=== PATIENT | female | born 1940 | race Caucasian/White ===

== ENCOUNTER → 2016-04-15 | Outpatient (CLI) | payer MEDICARE ==
[2016-04-15 10:14] LABS: Calcium 9.2 mg/dL (8.4-10.2); Potassium 5.4 mmol/L (3.5-5.1)
== END | disposition home or self-care (01) ==
LOC: LABT 09:12
PROVIDERS: ATTEND Nurse Practitioner Family
DX: N18.3 Chronic kidney disease, stage 3 (moderate) (principal)
CPT/HCPCS: 80048

== ENCOUNTER → 2016-07-01 | Outpatient (CLI) | payer MEDICARE ==
[2016-07-01 10:09] LABS: Anisocytosis Moderate; CH 29.8; CHCM 29.8; HCT 32.7 % (34.0-46.0); HDW 3.66; HGB 9.6 gm/dL (11.4-16.0); Hypochromasia Marked; MCH 29.3 pg (25.0-35.0); MCHC 29.3 g/dL (31.0-37.0); MCV 99.9 fL (80.0-100.0); Macrocytosis Moderate; Mean Platelet Volume 7.9; Poikilocytosis Slight; RBC 3.27 m/uL (3.80-5.40); RDW 21.4 % (11.5-15.5); WBC 4.8 k/uL (3.8-10.6)
[2016-07-01 10:13] LABS: Appearance,Urine Clear (Clear); Bacteria,Urine Rare /hpf; Bilirubin,Urine Negative (Negative); Glucose,Urine (UA) Negative (Negative); Ketones,Urine Negative (Negative); Leukocyte Esterase,Urine Moderate (Negative); Mucus,Urine Rare /hpf; Nitrite,Urine Negative (Negative); Particle Count 1422; Protein,Urine Negative (Negative); RBC,Urine 1 /hpf (0-5); Squamous Epithelial Cell,Urine <1 /hpf (0-4); UA Billing (MACRO vs. MICRO) MICRO; Urobilinogen,Urine <2.0 mg/dL (<2.0); WBC,Urine 2 /hpf (0-5)
[2016-07-01 10:35] LABS: Calcium 10.2 mg/dL (8.4-10.2); Magnesium 1.7 mg/dL (1.6-2.3); Phosphorous 3.4 mg/dL (2.5-4.5); Uric Acid 6.7 mg/dL (3.7-7.4)
[2016-07-01 10:45] LABS: % Iron Saturation 38.2 % (20-50)
== END ==
LOC: LABWHC1 09:13
PROVIDERS: ATTEND Nurse Practitioner Family
DX: N18.3 Chronic kidney disease, stage 3 (moderate) (principal); D64.9 Anemia, unspecified; E79.0 Hyperuricemia without signs of inflammatory arthritis and tophaceous disease; R80.9 Proteinuria, unspecified; E21.3 Hyperparathyroidism, unspecified; N39.0 Urinary tract infection, site not specified
CPT/HCPCS: 36415; 80048; 81001; 82043; 82306; 82728; 83540; 83550; 83735; 83970; 84100; 84550; 85027

== ENCOUNTER → 2016-08-19 | Outpatient (CLI) | payer MEDICARE ==
[2016-08-19 10:01] LABS: Potassium 4.7 mmol/L (3.5-5.1); Total Bilirubin 0.7 mg/dL (0.2-1.3); Total Protein 7.3 g/dL (6.3-8.2)
== END | disposition home or self-care (01) ==
LOC: LABWHC1 08:54
PROVIDERS: ATTEND Internal Medicine Interventional Cardiology
DX: E78.2 Mixed hyperlipidemia (principal)
CPT/HCPCS: 36415; 80053; 80061

== ENCOUNTER → 2016-09-24 | Outpatient (CLI) | payer MEDICARE ==
--- NOTE | 2016-09-24 10:11 | MM ---
Reason for exam: follow-up at short interval from prior study. Last mammogram was performed 7 months ago. History: Patient is postmenopausal. Took estrogen for 10 years beginning at age 53. Took progesterone for 10 years beginning at age 53. Physical Findings: Nurse did not find any significant physical abnormalities on exam. MG 3D Diag Mammo W/Cad MICKIE Bilateral CC and MLO view(s) were taken. Prior study comparison: March 07, 2016, left breast MG 3d diag mammo w/cad LT. July 19, 2015, bilateral MG 3d screening mammo w/cad. There are scattered fibroglandular densities. Finding #1: Stable architectural distortion in the upper outer quadrant of the left breast. Finding #2: There are typically benign vascular, round, linear calcifications in both breasts. These results were verbally communicated with the patient and result sheet given to the patient on 09/24/16. ASSESSMENT: Benign, BI-RAD 2 RECOMMENDATION: Routine screening mammogram of both breasts in 1 year.
--- NOTE | 2016-09-24 10:13 | USB ---
Reason for exam: follow-up at short interval from prior study. History: Patient is postmenopausal. Took estrogen for 10 years beginning at age 53. Took progesterone for 10 years beginning at age 53. US Breast LT Left breast ultrasound includes all four quadrants, the retroareolar region and axilla. Finding demonstrates a 0.3 x 0.3 x 0.2cm oval l lesion too small to characterize at 12 o'clock, a 0.6 x 0.6 x 0.3cm oval, cystic lesion at 9 o'clock and ductal ectasia at the nipple. These results were verbally communicated with the patient and result sheet given to the patient on 09/24/16. ASSESSMENT: Benign, BI-RAD 2 RECOMMENDATION: Routine screening mammogram of both breasts in 1 year.
== END | disposition home or self-care (01) ==
LOC: RADMAMWWP 07:59
PROVIDERS: ATTEND Internal Medicine
DX: R92.8 Other abnormal and inconclusive findings on diagnostic imaging of breast (principal)
CPT/HCPCS: 76641; G0204; G0279

== ENCOUNTER → 2016-09-24 | Outpatient (CLI) | payer MEDICARE ==
[2016-09-24 10:39] LABS: Calcium 9.8 mg/dL (8.4-10.2); Potassium 4.5 mmol/L (3.5-5.1)
== END | disposition home or self-care (01) ==
LOC: LABWHC1 09:21
PROVIDERS: ATTEND Nurse Practitioner Family
DX: N18.3 Chronic kidney disease, stage 3 (moderate) (principal)
CPT/HCPCS: 36415; 80048

== ENCOUNTER → 2016-12-03 | Outpatient (CLI) | payer MEDICARE ==
[2016-12-03 10:36] LABS: Anisocytosis Moderate; CH 30.7; HCT 30.4 % (34.0-46.0); HGB 9.3 gm/dL (11.4-16.0); Hypochromasia Marked; MCH 30.3 pg (25.0-35.0); MCHC 30.5 g/dL (31.0-37.0); MCV 99.3 fL (80.0-100.0); Macrocytosis Moderate; Mean Platelet Volume 8.1; Poikilocytosis Slight; RBC 3.07 m/uL (3.80-5.40); RDW 22.3 % (11.5-15.5); WBC 5.1 k/uL (3.8-10.6)
[2016-12-03 10:48] LABS: Calcium 9.5 mg/dL (8.4-10.2); Magnesium 1.8 mg/dL (1.6-2.3); Phosphorous 3.5 mg/dL (2.5-4.5); Uric Acid 7.3 mg/dL (3.7-7.4)
[2016-12-03 12:07] LABS: Appearance,Urine Clear (Clear); Bilirubin,Urine Negative (Negative); Glucose,Urine (UA) Negative (Negative); Ketones,Urine Negative (Negative); Leukocyte Esterase,Urine Trace (Negative); Mucus,Urine Rare /hpf; Nitrite,Urine Negative (Negative); Particle Count 1045; Protein,Urine Negative (Negative); Specific Gravity,Urine 1.014 (1.001-1.035); Squamous Epithelial Cell,Urine 1 /hpf (0-4); UA Billing (MACRO vs. MICRO) MICRO; Urobilinogen,Urine <2.0 mg/dL (<2.0); WBC,Urine 2 /hpf (0-5)
[2016-12-03 14:00] LABS: Hemoglobin A1C 6.3 % (4.2-6.1)
[2016-12-03 15:33] LABS: Iron Saturation 20.64 (12.00-45.00)
[2016-12-03 17:58] LABS: Urine Creatinine 70.6 mg/dL
== END | disposition home or self-care (01) ==
LOC: LABWHC1 08:55
PROVIDERS: ATTEND Nurse Practitioner Family
DX: E11.22 Type 2 diabetes mellitus with diabetic chronic kidney disease (principal); N18.3 Chronic kidney disease, stage 3 (moderate); D64.9 Anemia, unspecified; E21.3 Hyperparathyroidism, unspecified; E55.9 Vitamin D deficiency, unspecified; R80.9 Proteinuria, unspecified; E79.0 Hyperuricemia without signs of inflammatory arthritis and tophaceous disease; N39.0 Urinary tract infection, site not specified
CPT/HCPCS: 36415; 80048; 81001; 82043; 82306; 82570; 82728; 83036; 83540; 83550; 83735; 83970; 84100; 84550; 85027

== ENCOUNTER → 2016-12-24 | Outpatient (CLI) | payer MEDICARE ==
--- NOTE | 2016-12-24 12:45 | US ---
EXAMINATION TYPE: US kidneys/renal and bladder DATE OF EXAM: 12/24/2016 COMPARISON: US 2016 CLINICAL HISTORY: N18.3 Chronic kideny disease stage 3. CKD stage 3, HTN, DM, obese patient EXAM MEASUREMENTS: Right Kidney: 7.8 x 4.3 x 4.6 cm Left Kidney: 9.7 x 4.9 x 5.1 cm Right Kidney: measuring slightly small, no hydro or masses seen Left Kidney: no hydro or masses seen Bladder: not fully distended Bilateral Jets seen: left jet not seen There is no evidence for hydronephrosis at this point in time. No nephrolithiasis is seen. No danny s are identified. IMPRESSION: 1. Renal parenchymal thinning.
== END ==
LOC: RADUSWWP 12:05
PROVIDERS: ATTEND Internal Medicine Nephrology
DX: N18.3 Chronic kidney disease, stage 3 (moderate) (principal)
CPT/HCPCS: 76770

== ENCOUNTER → 2016-12-30 | Outpatient (CLI) | payer MEDICARE ==
[2016-12-30 10:26] LABS: Appearance,Urine Clear (Clear); Bilirubin,Urine Negative (Negative); Glucose,Urine (UA) Negative (Negative); Ketones,Urine Negative (Negative); Leukocyte Esterase,Urine Trace (Negative); Mucus,Urine Rare /hpf; Nitrite,Urine Negative (Negative); Particle Count 677; Protein,Urine Negative (Negative); Specific Gravity,Urine 1.009 (1.001-1.035); UA Billing (MACRO vs. MICRO) MICRO; Urobilinogen,Urine <2.0 mg/dL (<2.0); WBC,Urine 2 /hpf (0-5)
[2016-12-30 10:29] LABS: Anisocytosis Moderate; CHCM 29.7; HCT 34.4 % (34.0-46.0); HDW 3.61; HGB 10.1 gm/dL (11.4-16.0); Hypochromasia Marked; MCH 29.6 pg (25.0-35.0); MCHC 29.3 g/dL (31.0-37.0); MCV 101.2 fL (80.0-100.0); Macrocytosis Moderate; Mean Platelet Volume 7.5; Poikilocytosis Slight; RDW 20.6 % (11.5-15.5); WBC 5.4 k/uL (3.8-10.6)
[2016-12-30 10:57] LABS: Calcium 9.7 mg/dL (8.4-10.2); Magnesium 1.7 mg/dL (1.6-2.3); Phosphorus 3.3 mg/dL (2.5-4.5); Potassium 4.7 mmol/L (3.5-5.1); Uric Acid 7.2 mg/dL (3.7-7.4)
[2016-12-30 12:01] LABS: Hemoglobin A1C 6.2 % (4.2-6.1)
[2016-12-30 16:12] LABS: Iron Saturation 43.7 (12.00-45.00)
[2016-12-30 16:32] LABS: Urine Creatinine 55.5 mg/dL
== END | disposition home or self-care (01) ==
LOC: LABWHC1 08:58
PROVIDERS: ATTEND Nurse Practitioner Family
DX: N39.0 Urinary tract infection, site not specified (principal); E11.9 Type 2 diabetes mellitus without complications; R80.9 Proteinuria, unspecified; D64.9 Anemia, unspecified; E79.0 Hyperuricemia without signs of inflammatory arthritis and tophaceous disease; E21.3 Hyperparathyroidism, unspecified; N18.3 Chronic kidney disease, stage 3 (moderate)
CPT/HCPCS: 36415; 80048; 81001; 82043; 82306; 82570; 82728; 83036; 83540; 83550; 83735; 83970; 84100; 84550; 85027

== ENCOUNTER → 2017-06-04 | Outpatient (CLI) | payer MEDICARE ==
[2017-06-04 10:44] LABS: Anisocytosis Moderate; HGB 9.3 gm/dL (11.4-16.0); Hypochromasia Moderate; MCH 30.4 pg (25.0-35.0); MCHC 31.1 g/dL (31.0-37.0); MCV 97.7 fL (80.0-100.0); Macrocytosis Slight; Mean Platelet Volume 7.6; Platelet Count 323 k/uL (150-450); Poikilocytosis Slight; RBC 3.07 m/uL (3.80-5.40); WBC 5.9 k/uL (3.8-10.6)
[2017-06-04 10:45] LABS: Amorphous Sediment,Urine Rare /hpf; Appearance,Urine Clear (Clear); Bacteria,Urine Rare /hpf; Bilirubin,Urine Negative (Negative); Blood,Urine Negative (Negative); Color,Urine Light Yellow; Glucose,Urine (UA) Negative (Negative); Hyaline Casts,Urine 3 /lpf (0-2); Ketones,Urine Negative (Negative); Leukocyte Esterase,Urine Moderate (Negative); Mucus,Urine Rare /hpf; Nitrite,Urine Negative (Negative); Protein,Urine Negative (Negative); Specific Gravity,Urine 1.015 (1.001-1.035); Squamous Epithelial Cell,Urine <1 /hpf (0-4); Urobilinogen,Urine <2.0 mg/dL (<2.0); WBC,Urine 2 /hpf (0-5)
[2017-06-04 10:50] LABS: Calcium 9.6 mg/dL (8.4-10.2); Magnesium 1.7 mg/dL (1.6-2.3); Phosphorus 3.5 mg/dL (2.5-4.5); Potassium 4.8 mmol/L (3.5-5.1); Uric Acid 7.1 mg/dL (3.7-7.4)
[2017-06-04 16:30] LABS: Iron Saturation 17.97 (12.00-45.00)
[2017-06-04 16:38] LABS: Vitamin D 25 Hydroxy 29.7 ng/mL (30.0-100.0)
[2017-06-04 21:06] LABS: Hemoglobin A1C 6.2 % (4.0-6.0)
== END | disposition home or self-care (01) ==
LOC: LABWHC1 09:20
PROVIDERS: ATTEND Nurse Practitioner Family
DX: R80.9 Proteinuria, unspecified (principal); N18.3 Chronic kidney disease, stage 3 (moderate); E11.22 Type 2 diabetes mellitus with diabetic chronic kidney disease; D63.1 Anemia in chronic kidney disease; E79.0 Hyperuricemia without signs of inflammatory arthritis and tophaceous disease; E21.3 Hyperparathyroidism, unspecified; N39.0 Urinary tract infection, site not specified
CPT/HCPCS: 36415; 80048; 81001; 82043; 82306; 82570; 82728; 83036; 83540; 83550; 83735; 83970; 84100; 84550; 85027; 87086

== ENCOUNTER → 2017-08-01 | Outpatient (CLI) | payer MEDICARE ==
--- NOTE | 2017-08-01 11:50 | MR ---
EXAMINATION TYPE: MR shoulder LT wo con DATE OF EXAM: 08/01/2017 COMPARISON: NONE HISTORY: Left shoulder pain TECHNIQUE: Multiplanar, multisequence imaging of the left shoulder is performed without contrast. FINDINGS: Rotator Cuff: There is diffuse enlargement and abnormal signal involving the distal margin supraspina tus tendon. Also are involved with conjoined tendon noted. Low distal margin of the infraspinatus ten don including the insertion and conjoined portion of the tendon also involved. There is atrophy of th e supraspinatus muscle and to a lesser extent the infraspinatus muscle. Acromioclavicular Joint: Atrophic changes the AC joint does result in a degree of impingement and the re is a small amount of fluid in subacromial subdeltoid bursa. Glenohumeral Joint: No humeral joint is maintained. Labrum: The labrum appears grossly intact given limitation of non-arthrogram study. Biceps Tendon: The long head of biceps is in normal location within bicipital groove. Increased signa l within the rotator interval portion of the biceps tendon is compatible tendinosis. Bone marrow signal: Heterogeneous marrow signal may been the basis of reconversion. Marrow occupying process not excluded. Correlate with bone scan as clinically warranted. IMPRESSION: 1. Diffuse tendinopathy throughout the distal margins of the supra and infraspinatus tendons compatib le severe tendinosis and partial tear. Small through thickness tear involving the anterior fibers of the supraspinatus tendon suspected measuring approximately 5 mm. 2. Diffuse marrow signal alteration is nonspecific can be seen with osteopenia or marrow reconversion . Marrow occupying process not excluded. Bone scan suggested.
== END | disposition home or self-care (01) ==
LOC: RADMRIMAIN 09:05
PROVIDERS: ATTEND Internal Medicine
DX: M75.92 Shoulder lesion, unspecified, left shoulder (principal); M75.102 Unspecified rotator cuff tear or rupture of left shoulder, not specified as traumatic

== ENCOUNTER 2017-08-19 08:43 | Day surgery (SDC) | payer MEDICARE ==
[2017-08-15 11:07] VITALS: BMI 38.2
[~2017-08-19 08:43] MED LIST: LACTATED RINGERS 1,000 ML IV SCH
[2017-08-19] MEDS ORDERED: LIDOCAINE 1% 20 ML VIAL (10MG/ML) FOR IV START INTRADERMA ONE (09:40)
[2017-08-19 09:42] VITALS: TEMP 97.2
[2017-08-19 09:45] LABS: Glucose,Whole Blood 115 mg/dL (75-99)
[2017-08-19] MEDS ORDERED: PROPOFOL 10 MG/ML 20 ML VIAL IV ONE (10:03)
[2017-08-19] MEDS ORDERED: LIDOCAINE 1% INJ 10MG/ML (20 ML MDV) ONE (10:03)
[2017-08-19 10:36] VITALS: RESP 18
--- NOTE | 2017-08-19 10:38 | P.PCN ---
Date of Procedure: 08/19/17 Procedure(s) Performed: Procedure: 1. Esophagogastroduodenoscopy and biopsy. 2. Total colonoscopy. Preoperative diagnosis: Iron deficiency anemia. Postoperative diagnosis: 1. Minimal gastritis and duodenitis with no ulcers or active bleeding. 2. Mild sigmoid diverticulosis with no evidence of acute diverticulitis, strictures, polyps or cancer. Preparation: HalfLytely prep. Sedation: Was provided by anesthesia. Brief clinical history: The patient is a 76-year-old female who is scheduled for this evaluation because of iron deficiency anemia. There is no history of overt bleeding. She has renal failure and has been receiving Procrit in addition to iron therapy, yet her blood counts are not picking up as expected. Procedure: With the patient on her left lateral decubitus position and after informed consent and adequate sedation, I passed the Olympus-GIF 160 video upper endoscope through the cricopharyngeus down the esophagus. GE junction was around 40-41 cm from the incisors and there was no obvious hiatal hernia or any obvious esophagitis or complicated reflux disease. The endoscope was then passed into the stomach which was insufflated with air and inspected in detail including the retroflex view in the cardia. There was there was some mottling and erythema in the antrum but no ulcers or erosions. Pyloric channel did not show any ulcers. Duodenal bulb showed minimal erythema but no ulcers or erosions. Post bulbar area and descending duodenum appeared within normal limits. I obtained biopsies from the antrum then the endoscope was withdrawn and I proceeded with the colonoscopy. Perianal area did not show any fissures or fistulas. There were no masses felt on digital rectal examination. The Olympus CFQ 160L video colonoscope was then inserted in the rectum in the usual fashion and advanced to the cecum. There were a few diverticular orifices seen scattered in the sigmoid with no evidence of acute diverticulitis or strictures. No polyps or tumors were seen. I retroflexed the endoscope in the rectum before the endoscope was withdrawn. The patient tolerated the procedure well. Plan: The patient was reassured. She will follow-up with you as planned and further plans based on her course and biopsy results. We would be happy to see in the future if needed.
[2017-08-19 11:07] VITALS: BP 168/83; PULSE 81
== END 2017-08-19 11:17 | disposition home or self-care (01) ==
LOC: ORWHC2ENDO 08:43
DX: D50.9 Iron deficiency anemia, unspecified (principal)
CPT/HCPCS: 88305; 45378; 43239; J2001; J2704

== ENCOUNTER → 2017-10-08 | Outpatient (CLI) | payer MEDICARE ==
[2017-10-08 09:45] LABS: Anisocytosis Moderate; Basophils # (A) 0.1 k/uL (0-0.2); Basophils % (A) 1 %; Eosinophils # (A) 0.3 k/uL (0-0.7); Eosinophils % (A) 6 %; HCT 32.3 % (34.0-46.0); HGB 9.6 gm/dL (11.4-16.0); Hypochromasia Marked; Lymphocytes # (A) 1.7 k/uL (1.0-4.8); Lymphocytes % (A) 31 %; MCH 29.6 pg (25.0-35.0); MCHC 29.7 g/dL (31.0-37.0); MCV 99.8 fL (80.0-100.0); Macrocytosis Moderate; Mean Platelet Volume 7.8; Monocytes # (A) 0.4 k/uL (0-1.0); Monocytes % (A) 7 %; Neutrophils # (A) 2.9 k/uL (1.3-7.7); Neutrophils % (A) 52 %; Platelet Count 324 k/uL (150-450); Poikilocytosis Slight; RBC 3.24 m/uL (3.80-5.40); RDW 21.8 % (11.5-15.5); WBC 5.5 k/uL (3.8-10.6)
[2017-10-08 10:09] LABS: Albumin 4.3 g/dL (3.5-5.0); Calcium 9.4 mg/dL (8.4-10.2); Total Bilirubin 0.3 mg/dL (0.2-1.3); Total Protein 6.6 g/dL (6.3-8.2)
== END | disposition home or self-care (01) ==
LOC: LABWHC1 09:16
PROVIDERS: ATTEND Internal Medicine Interventional Cardiology
DX: E11.9 Type 2 diabetes mellitus without complications (principal); N18.3 Chronic kidney disease, stage 3 (moderate); D63.1 Anemia in chronic kidney disease; D50.9 Iron deficiency anemia, unspecified; E78.2 Mixed hyperlipidemia
CPT/HCPCS: 36415; 80053; 80061; 85025

== ENCOUNTER → 2017-11-12 | Outpatient (CLI) | payer MEDICARE ==
[2017-11-12 09:56] LABS: Anisocytosis Moderate; Basophils % (A) 1 %; Eosinophils # (A) 0.2 k/uL (0-0.7); Eosinophils % (A) 6 %; HCT 32.3 % (34.0-46.0); HGB 9.6 gm/dL (11.4-16.0); Hypochromasia Marked; Lymphocytes # (A) 1.6 k/uL (1.0-4.8); Lymphocytes % (A) 41 %; MCH 30.6 pg (25.0-35.0); MCHC 29.6 g/dL (31.0-37.0); MCV 103.4 fL (80.0-100.0); Macrocytosis Marked; Mean Platelet Volume 7.9; Monocytes # (A) 0.3 k/uL (0-1.0); Monocytes % (A) 9 %; Neutrophils # (A) 1.6 k/uL (1.3-7.7); Neutrophils % (A) 40 %; Platelet Count 185 k/uL (150-450); Poikilocytosis Slight; RBC 3.12 m/uL (3.80-5.40); RDW 21.9 % (11.5-15.5)
[2017-11-12 10:10] LABS: Calcium 9.6 mg/dL (8.4-10.2); Magnesium 1.8 mg/dL (1.6-2.3); Phosphorus 4.1 mg/dL (2.5-4.5); Potassium 5.3 mmol/L (3.5-5.1); Uric Acid 6.7 mg/dL (3.7-7.4)
[2017-11-12 10:30] LABS: Appearance,Urine Clear (Clear); Bilirubin,Urine Negative (Negative); Blood,Urine Negative (Negative); Color,Urine Yellow; Glucose,Urine (UA) Negative (Negative); Hyaline Casts,Urine 6 /lpf (0-2); Ketones,Urine Negative (Negative); Leukocyte Esterase,Urine Large (Negative); Mucus,Urine Rare /hpf; Nitrite,Urine Negative (Negative); Protein,Urine Negative (Negative); RBC,Urine 3 /hpf (0-5); Specific Gravity,Urine 1.017 (1.001-1.035); Squamous Epithelial Cell,Urine 1 /hpf (0-4); Urobilinogen,Urine <2.0 mg/dL (<2.0); WBC,Urine 8 /hpf (0-5)
[2017-11-12 11:20] LABS: Ovalocytes Present; Toxic Granulation Present
[2017-11-12 17:15] LABS: Iron Saturation 81.93 (12.00-45.00)
[2017-11-12 17:22] LABS: Vitamin D 25 Hydroxy 25.2 ng/mL (30.0-100.0)
[2017-11-12 18:03] LABS: Parathyroid Hormone Intact 103.6 pg/mL (14.0-72.0)
== END | disposition home or self-care (01) ==
LOC: LABWHC1 09:21
PROVIDERS: ATTEND Internal Medicine Nephrology
DX: N18.3 Chronic kidney disease, stage 3 (moderate) (principal); E61.1 Iron deficiency; E21.3 Hyperparathyroidism, unspecified; M10.9 Gout, unspecified; N39.0 Urinary tract infection, site not specified
CPT/HCPCS: 36415; 80048; 81001; 82306; 82728; 83540; 83550; 83735; 83970; 84100; 84550; 85025; 87086

== ENCOUNTER → 2018-01-23 | Outpatient (CLI) | payer MEDICARE ==
--- NOTE | 2018-01-26 11:16 | MM ---
Reason for exam: screening (asymptomatic). Last mammogram was performed 1 year and 4 months ago. History: Patient is postmenopausal. Took estrogen for 10 years beginning at age 53. Took progesterone for 10 years beginning at age 53. Physical Findings: A clinical breast exam by your physician is recommended on an annual basis and results should be correlated with mammographic findings. MG 3D Screening Mammo W/Cad Bilateral CC and MLO view(s) were taken. Prior study comparison: September 24, 2016, bilateral MG 3d diag mammo w/cad MICKIE. March 07, 2016, left breast MG 3d diag mammo w/cad LT. The breast tissue is heterogeneously dense. This may lower the sensitivity of mammography. There is chronic nodularity bilaterally. ASSESSMENT: Incomplete: need additional imaging evaluation, BI-RAD 0 RECOMMENDATION: Special view mammogram of the left breast. If lesion persists on supplemental views, image directed ultrasound is recommended. [facility] will attempt to contact patient to return for supplemental views and ultrasound if indicated.
== END | disposition home or self-care (01) ==
LOC: RADMAMWWP 13:07
PROVIDERS: ATTEND Internal Medicine
DX: Z12.31 Encounter for screening mammogram for malignant neoplasm of breast (principal)
CPT/HCPCS: 77063; 77067

== ENCOUNTER → 2018-01-30 | Outpatient (CLI) | payer MEDICARE ==
--- NOTE | 2018-02-02 07:15 | MM ---
Reason for exam: additional evaluation requested from abnormal screening. Last mammogram was performed less than 1 month ago. History: Patient is postmenopausal. Took estrogen for 10 years beginning at age 53. Took progesterone for 10 years beginning at age 53. Physical Findings: Nurse did not find any significant physical abnormalities on exam. MG 3D Work Up W/Cad LT CCRM and ML view(s) were taken of the left breast. Prior study comparison: January 23, 2018, bilateral MG 3d screening mammo w/cad. September 24, 2016, bilateral MG 3d diag mammo w/cad MICKIE. The breast tissue is heterogeneously dense. This may lower the sensitivity of mammography. Finding: There are typically benign round calcifications in the left breast. There is a chronic nodularity in the left breast. There is no discrete abnormality. No suspicious new nodularity persists. These results were verbally communicated with the patient and result sheet given to the patient on 01/30/18. ASSESSMENT: Benign, BI-RAD 2 RECOMMENDATION: Return to routine screening mammogram schedule for both breasts.
== END ==
LOC: RADMAMWWP 14:54
PROVIDERS: ATTEND Internal Medicine
DX: R92.8 Other abnormal and inconclusive findings on diagnostic imaging of breast (principal)
CPT/HCPCS: 77065; G0279; 77061

== ENCOUNTER → 2018-05-29 | Outpatient (CLI) | payer MEDICARE ==
[2018-05-29 17:56] LABS: Albumin 4.5 g/dL (3.80-4.90); Albumin/Globulin Ratio 2.05 (1.60-3.17); Anion Gap 6.3 mmol/L (4.00-12.00); Calcium 9.8 mg/dL (8.7-10.3); Carbon Dioxide 27.7 mmol/L (21.6-31.8); Globulin 2.2 g/dL (1.6-3.3); LDL Cholesterol,Calculated 48.8 mg/dL (0.0-131.0); Total Bilirubin 0.4 mg/dL (0.3-1.2); Total Protein 6.7 g/dL (6.2-8.2); VLDL Calculation 25.2 mg/dL (5.00-40.00)
== END ==
LOC: LABWHC1 09:06
PROVIDERS: ATTEND Internal Medicine Interventional Cardiology
DX: E78.2 Mixed hyperlipidemia (principal)
CPT/HCPCS: 36415; 80053; 80061

== ENCOUNTER → 2018-11-25 | Outpatient (CLI) | payer MEDICARE ==
[2018-11-25 17:20] LABS: African American GFR (CKD) 41.3 (60.0-200.0); Albumin 4.2 g/dL (3.80-4.90); Albumin/Globulin Ratio 2.33 (1.60-3.17); Anion Gap 7.3 mmol/L (4.00-12.00); Calcium 9.3 mg/dL (8.7-10.3); Carbon Dioxide 25.7 mmol/L (21.6-31.8); Chol/HDL Ratio 2.71; Globulin 1.8 g/dL (1.6-3.3); LDL Cholesterol,Calculated 45.8 mg/dL (0.0-131.0); Potassium 5.1 mmol/L (3.5-5.5); Total Bilirubin 0.5 mg/dL (0.3-1.2); VLDL Calculation 26.2 mg/dL (5.00-40.00)
== END | disposition home or self-care (01) ==
LOC: LABWHC1 08:57
PROVIDERS: ATTEND Internal Medicine Interventional Cardiology
DX: E78.2 Mixed hyperlipidemia (principal)
CPT/HCPCS: 36415; 80053; 80061

== ENCOUNTER → 2019-03-25 | Outpatient (CLI) | payer MEDICARE ==
[2019-03-25 10:07] LABS: Anisocytosis Moderate; Basophils % (A) 0 %; Eosinophils # (A) 0.3 k/uL (0-0.7); Eosinophils % (A) 6 %; HGB 8.9 gm/dL (11.4-16.0); Hypochromasia Marked; Lymphocytes # (A) 1.6 k/uL (1.0-4.8); Lymphocytes % (A) 35 %; MCH 30.6 pg (25.0-35.0); MCHC 30.8 g/dL (31.0-37.0); MCV 99.5 fL (80.0-100.0); Macrocytosis Moderate; Monocytes # (A) 0.3 k/uL (0-1.0); Monocytes % (A) 7 %; Neutrophils # (A) 2.1 k/uL (1.3-7.7); Neutrophils % (A) 48 %; Platelet Count 269 k/uL (150-450); Poikilocytosis Slight; RBC 2.91 m/uL (3.80-5.40); RDW 21.5 % (11.5-15.5); WBC 4.5 k/uL (3.8-10.6)
[2019-03-25 10:15] LABS: Protein/Creatinine Ratio,Urine 0.1
[2019-03-25 10:21] LABS: Appearance,Urine Clear (Clear); Bilirubin,Urine Negative (Negative); Blood,Urine Negative (Negative); Color,Urine Yellow; Glucose,Urine (UA) Negative (Negative); Hyaline Casts,Urine 1 /lpf (0-2); Ketones,Urine Negative (Negative); Leukocyte Esterase,Urine Moderate (Negative); Mucus,Urine Rare /hpf; Nitrite,Urine Negative (Negative); Protein,Urine Negative (Negative); Specific Gravity,Urine 1.019 (1.001-1.035); Squamous Epithelial Cell,Urine 2 /hpf (0-4); Urobilinogen,Urine <2.0 mg/dL (<2.0); WBC,Urine 4 /hpf (0-5)
[2019-03-25 17:18] LABS: % Iron Saturation 27.41 (12.00-45.00); African American GFR (CKD) 37.7 (60.0-200.0); Albumin 4.5 g/dL (3.80-4.90); Anion Gap 7.3 mmol/L (4.00-12.00); BUN/Creat Ratio 21.33 Ratio (12.00-20.00); Calcium 9.6 mg/dL (8.7-10.3); Carbon Dioxide 25.7 mmol/L (21.6-31.8); Magnesium 1.6 mg/dL (1.5-2.4); Non-African American GFR(CKD) 32.6 (60.0-200.0); Uric Acid 6.9 mg/dL (2.9-7.7)
[2019-03-25 17:41] LABS: Ferritin 672.8 ng/mL (10.0-291.0)
== END | disposition home or self-care (01) ==
LOC: LABWHC1 08:58
PROVIDERS: ATTEND Internal Medicine Nephrology
DX: N39.0 Urinary tract infection, site not specified (principal); M10.9 Gout, unspecified; D63.1 Anemia in chronic kidney disease; N18.3 Chronic kidney disease, stage 3 (moderate); N25.81 Secondary hyperparathyroidism of renal origin; E55.9 Vitamin D deficiency, unspecified; E21.3 Hyperparathyroidism, unspecified; R80.9 Proteinuria, unspecified
CPT/HCPCS: 36415; 80048; 81001; 82040; 82306; 82570; 82728; 83540; 83550; 83735; 83970; 84100; 84156; 84550; 85025

== ENCOUNTER → 2019-03-31 | Outpatient (CLI) | payer MEDICARE ==
--- NOTE | 2019-04-02 10:01 | MM ---
Reason for exam: screening (asymptomatic). Last mammogram was performed 1 year and 2 months ago. History: Patient is postmenopausal. Took estrogen for 10 years beginning at age 53. Took progesterone for 10 years beginning at age 53. Physical Findings: A clinical breast exam by your physician is recommended on an annual basis and results should be correlated with mammographic findings. MG 3D Screening Mammo W/Cad Bilateral CC and MLO view(s) were taken. Prior study comparison: January 30, 2018, left breast MG 3d work up w/cad LT. January 23, 2018, bilateral MG 3d screening mammo w/cad. There are scattered fibroglandular densities. There is chronic nodularity in the left breast medially and posteriorly. Benign vascular and oil cyst calcifications. No significant changes when compared with prior studies. ASSESSMENT: Benign, BI-RAD 2 RECOMMENDATION: Routine screening mammogram of both breasts in 1 year.
== END ==
LOC: RADMAMWWP 10:52
PROVIDERS: ATTEND Internal Medicine
DX: Z12.31 Encounter for screening mammogram for malignant neoplasm of breast (principal)
CPT/HCPCS: 77063; 77067

== ENCOUNTER → 2019-09-27 | Outpatient (CLI) | payer MEDICARE ==
[2019-09-27 10:04] LABS: Appearance,Urine Clear (Clear); Bilirubin,Urine Negative (Negative); Blood,Urine Negative (Negative); Color,Urine Yellow; Glucose,Urine (UA) Negative (Negative); Ketones,Urine Negative (Negative); Leukocyte Esterase,Urine Negative (Negative); Nitrite,Urine Negative (Negative); Protein,Urine Negative (Negative); Specific Gravity,Urine 1.017 (1.001-1.035); Urobilinogen,Urine <2.0 mg/dL (<2.0)
[2019-09-27 10:12] LABS: Anisocytosis Moderate; Basophils % (A) 0 %; Eosinophils # (A) 0.3 k/uL (0-0.7); Eosinophils % (A) 6 %; HCT 29.4 % (34.0-46.0); HGB 8.9 gm/dL (11.4-16.0); Hypochromasia Marked; Lymphocytes # (A) 1.5 k/uL (1.0-4.8); Lymphocytes % (A) 38 %; MCH 30.9 pg (25.0-35.0); MCHC 30.3 g/dL (31.0-37.0); Macrocytosis Marked; Monocytes # (A) 0.3 k/uL (0-1.0); Monocytes % (A) 6 %; Neutrophils # (A) 1.8 k/uL (1.3-7.7); Neutrophils % (A) 47 %; Platelet Count 195 k/uL (150-450); Poikilocytosis Slight; RBC 2.88 m/uL (3.80-5.40); RDW 22.1 % (11.5-15.5); WBC 3.9 k/uL (3.8-10.6)
[2019-09-27 10:27] LABS: Protein/Creatinine Ratio,Urine 0.121
[2019-09-27 15:48] LABS: % Iron Saturation 54.95 (12.00-45.00); African American GFR (CKD) 49.4 (60.0-200.0); Albumin 4.2 g/dL (3.80-4.90); Anion Gap 6.3 mmol/L (4.00-12.00); Calcium 9.1 mg/dL (8.7-10.3); Carbon Dioxide 25.7 mmol/L (21.6-31.8); Globulin 2.1 g/dL (1.6-3.3); Magnesium 1.7 mg/dL (1.5-2.4); Non-African American GFR(CKD) 42.6 (60.0-200.0); Potassium 5.2 mmol/L (3.5-5.5); Total Bilirubin 0.5 mg/dL (0.3-1.2); Total Protein 6.3 g/dL (6.2-8.2)
[2019-09-27 15:49] LABS: Chol/HDL Ratio 2.79; LDL Cholesterol,Calculated 52.4 mg/dL (0.0-131.0); Phosphorus 3.7 mg/dL (2.4-5.1); Uric Acid 6.2 mg/dL (2.9-7.7); VLDL Calculation 22.6 mg/dL (5.00-40.00)
[2019-09-27 16:07] LABS: Ferritin 657.3 ng/mL (10.0-291.0)
[2019-09-27 17:29] LABS: Hemoglobin A1C 6.4 % (4.0-6.0)
== END | disposition home or self-care (01) ==
LOC: LABWHC1 09:05
PROVIDERS: ATTEND Nurse Practitioner Family
DX: E11.22 Type 2 diabetes mellitus with diabetic chronic kidney disease (principal); N18.3 Chronic kidney disease, stage 3 (moderate); D63.1 Anemia in chronic kidney disease; N39.0 Urinary tract infection, site not specified; M10.9 Gout, unspecified; N25.81 Secondary hyperparathyroidism of renal origin; E55.9 Vitamin D deficiency, unspecified; E21.3 Hyperparathyroidism, unspecified; R80.9 Proteinuria, unspecified; R06.00 Dyspnea, unspecified; E78.2 Mixed hyperlipidemia
CPT/HCPCS: 36415; 80053; 80061; 81003; 82306; 82570; 82728; 83036; 83540; 83550; 83735; 83970; 84100; 84156; 84550; 85025; 85379

== ENCOUNTER → 2019-12-24 | Outpatient (CLI) | payer MEDICARE ==
--- NOTE | 2019-12-24 15:43 | US ---
EXAMINATION TYPE: US venous doppler duplex LE LT DATE OF EXAM: 12/24/2019 3:30 PM COMPARISON: NONE CLINICAL HISTORY: DVT LT LEG M79.662. Lt calf pain and swelling x 1 mth SIDE PERFORMED: Left TECHNIQUE: The lower extremity deep venous system is examined utilizing real time linear array sonog meg with graded compression, doppler sonography and color-flow sonography. VESSELS IMAGED: External Iliac Vein (EIV) Common Femoral Vein Deep Femoral Vein Greater Saphenous Vein * Femoral Vein Popliteal Vein Small Saphenous Vein * Proximal Calf Veins (* superficial vessels) Left Leg: Negative for DVT Grayscale, color doppler, spectral doppler imaging performed of the deep veins of the left lower extr emity. There is normal flow, compressibility, vascular waveforms. IMPRESSION: No ultrasound evidence for acute DVT in the left lower extremity.
== END | disposition home or self-care (01) ==
LOC: RADUSWWP 14:56
PROVIDERS: ATTEND Podiatrist Foot & Ankle Surgery
DX: M79.662 Pain in left lower leg (principal); I82.4Z2 Acute embolism and thrombosis of unspecified deep veins of left distal lower extremity

== ENCOUNTER 2020-01-23 10:26 | Emergency (ER) | payer MEDICARE ==
[2020-01-23 10:31] VITALS: RESP 18; TEMP 97.6
[2020-01-23] MEDS ORDERED: DIPH,PERTUS(ACELL)TETVAC-LF 0.5 ML VIAL IM ONE (10:43)
--- NOTE | 2020-01-23 11:20 | ED ---
Fall HPI - General Chief Complaint: Fall Stated Complaint: fall, facial injury Time Seen by Provider: 01/23/20 10:36 Source: patient Mode of arrival: wheelchair Limitations: no limitations - History of Present Illness Initial Comments: This is an 79-year-old female presents emergency Department chief complaint of trip and fall. Patient was at [employer] when she stubbed her toe causing her fall forward on the asphalt parking lot. Patient states that she had bleeding from her nose, lip. No loose dentition. No loss conscious. Patient states she takes aspirin daily no other complaints noted. Denies any neck, back 70 pain. Patient is unsure when her last tetanus was. Patient offers no other complaints. - Related Data Home Medications Medication Instructions Recorded Confirmed Acetaminophen Tab [Tylenol] 1,000 mg PO BID 06/03/14 08/15/17 Aspirin 81 mg PO DAILY 06/03/14 08/15/17 Atorvastatin Calcium [Lipitor] 20 mg PO SUMOWETHFR 06/03/14 08/15/17 Cyanocobalamin [Vitamin B-12 1,000 mcg SQ QMONTH 08/15/17 08/15/17 Injection] Epoetin Herbert [Procrit] 40,000 unit INJ Q14D 08/15/17 08/15/17 Ergocalciferol [Vitamin D2] 50,000 unit PO Q14D 08/15/17 08/15/17 Folic Acid 0.8 mg PO DAILY 08/15/17 08/15/17 Lisinopril-Hctz 20-12.5 mg 1 tab PO BID 08/15/17 08/15/17 [Zestoretic 20-12.5] Metoprolol Succinate (ER) [Toprol 25 mg PO DAILY 08/15/17 08/15/17 Xl] allopurinoL [Zyloprim] 100 mg PO DAILY 08/15/17 08/15/17 calcitrioL [Rocaltrol] 0.25 mcg PO Q7D 08/15/17 08/15/17 Allergies Allergy/AdvReac Type Severity Reaction Status Date / Time Corticosteroids Allergy Rash/Hives Verified 01/23/20 10:31 (Glucocorticoids) dipyridamole AdvReac BRADYCARDIA, Verified 01/23/20 10:31 [From Persantine] HYPOTENSION DURING STRESS TEST Review of Systems ROS Statement: Those systems with pertinent positive or pertinent negative responses have been documented in the HPI. ROS Other: All systems not noted in ROS Statement are negative. Past Medical History Past Medical History: Blood Disorder, Diabetes Mellitus, Deep Vein Thrombosis (DVT), Hyperlipidemia, Hypertension, Osteoarthritis (OA), Renal Disease Additional Past Medical History / Comment(s): KIDNEY FAILURE 2015, AFFECTED RBC'S, NO RX FOR DM SINCE. History of Any Multi-Drug Resistant Organisms: None Reported Past Surgical History: Cholecystectomy, Orthopedic Surgery, Tubal Ligation Additional Past Surgical History / Comment(s): left knee replacement Past Anesthesia/Blood Transfusion Reactions: Previous Problems w/ Anesthesia Additional Past Anesthesia/Blood Transfusion Reaction / Comment(s): WITH TOTAL KNEE WAS "OUT OF IT FOR ABOUT 5 DAYS." Past Psychological History: No Psychological Hx Reported Smoking Status: Never smoker Past Alcohol Use History: None Reported Past Drug Use History: None Reported - Past Family History Daughter(s) Additional Family Medical History / Comment(s): Daughter--rectal cancer. Sister- ovarian cancer. Brother-lung cancer General Exam Limitations: no limitations General appearance: alert, in no apparent distress Head exam: Present: atraumatic, normocephalic, normal inspection Eye exam: Present: normal appearance, PERRL, EOMI. Absent: scleral icterus, conjunctival injection, periorbital swelling ENT exam: Present: normal oropharynx, mucous membranes moist, TM's normal bila terally, normal external ear exam. Absent: normal exam (Abrasion to her nose, dry blood noted in the nostrils, superficial laceration to the lip, chin region) Neck exam: Present: normal inspection, full ROM. Absent: tenderness, meningismus, lymphadenopathy Respiratory exam: Present: normal lung sounds bilaterally. Absent: respiratory distress, wheezes, rales, rhonchi, stridor Cardiovascular Exam: Present: regular rate, normal rhythm, normal heart sounds. Absent: systolic murmur, diastolic murmur, rubs, gallop, clicks Extremities exam: Present: normal inspection, full ROM, normal capillary refill. Absent: tenderness, pedal edema, joint swelling, calf tenderness Neurological exam: Present: alert, oriented X3, CN II-XII intact. Absent: motor sensory deficit Course Vital Signs 01/23/20 10:29 Temperature 97.6 F Pulse Rate 77 Respiratory 18 Rate Blood Pressure 187/77 O2 Sat by Pulse 98 Oximetry Medical Decision Making - Medical Decision Making CTs were reviewed no acute fracture or intracranial bleeds. Patient has superficial skin laceration of her chin does extend in the left though it's not gaping, lower portion of the chin was closed with exofin patient's tetanus is updated. Disposition Clinical Impression: Fall, Facial abrasion, Facial laceration Disposition: HOME SELF-CARE Condition: Stable Instructions (If sedation given, give patient instructions): Head Injury (ED) Additional Instructions: Please return to the Emergency Department if symptoms worsen or any other concerns. Is patient prescribed a controlled substance at d/c from ED?: No Referrals: Sage Espinoza MD [Primary Care Provider] - 1-2 days Time of Disposition: 12:01
--- NOTE | 2020-01-23 11:24 | CT ---
EXAMINATION TYPE: CT brain [place] wo con DATE OF EXAM: 01/23/2020 COMPARISON: None HISTORY: Fall, multiple facial abrasions CT DLP: 1189.7 (brain, cervical, facial) mGycm Unenhanced CT of the brain was performed. The ventricles, basal cisterns and sulci overlying the cerebral convexities demonstrate mild enlargem ent. There is no evidence for intracranial hemorrhage or sulcal effacement. There is decreased attenuatio n about the periventricular white matter and deep white matter of both cerebral hemispheres, compatib le with chronic small vessel ischemia. No mass effects are seen. If symptoms persist consider MRI. Osseous calvarium is intact. IMPRESSION: 1. Age related atrophic and chronic small vessel ischemic change without acute intracranial process seen at this time. CT Cervical Spine: Unenhanced CT of the cervical spine was performed with bone and soft tissue window settings submitted . Coronal and sagittal reconstruction is obtained. There is normal alignment and prevertebral soft tissues. No evidence for acute cervical fracture . Scattered degenerative disc disease and spondylosis. Biapical scarring. IMPRESSION: 1. No evidence for acute fracture or subluxation of the cervical spine.
--- NOTE | 2020-01-23 11:26 | CT ---
EXAMINATION TYPE: CT facial bones wo con DATE OF EXAM: 01/23/2020 COMPARISON: None HISTORY: Fall, multiple facial abrasions CT DLP: 1189.7 (brain, cervical, facial) mGycm Unenhanced CT of the facial bones was performed in the axial and coronal planes. Bone and soft tissu e window settings are submitted. No significant soft tissue swelling is appreciated. I do not see evidence for displaced facial bone fracture or depressed facial bone fracture. The globes are intact. Paranasal sinuses are well-aerated. IMPRESSION: 1. No evidence for depressed or displaced facial bone fracture.
[2020-01-23] MEDS ORDERED: TOPICAL SKIN ADHESIVE 1 EACH AMP TOPICAL ONE (12:00)
[2020-01-23 12:28] VITALS: BP 190/75; PULSE 65
--- NOTE | 2020-02-05 09:44 | CDI ---
Dear Toby Ramirez MD Please do addendum for length of laceration repair for facial , procedure done , Thank you, Benji Andrade, Envelope Sealing Machine Operator. If you have any questions, please contact Neon Sign Worker at [phone]. mtdD
== END 2020-01-23 12:26 | disposition home or self-care (01) ==
LOC: EC 10:26
DX: S01.81XA Laceration without foreign body of other part of head, initial encounter (principal); S01.511A Laceration without foreign body of lip, initial encounter; Z23 Encounter for immunization; E78.5 Hyperlipidemia, unspecified; I10 Essential (primary) hypertension; M19.90 Unspecified osteoarthritis, unspecified site; Z79.82 Long term (current) use of aspirin; Z79.899 Other long term (current) drug therapy; Z88.8 Allergy status to other drugs, medicaments and biological substances; Z96.652 Presence of left artificial knee joint; Z86.718 Personal history of other venous thrombosis and embolism; W01.0XXA Fall on same level from slipping, tripping and stumbling without subsequent striking against object, initial encounter; Y93.01 Activity, walking, marching and hiking; Y92.22 Religious institution as the place of occurrence of the external cause
CPT/HCPCS: 12011; 70450; 70486; 72125; 90471; 90715; 99283

== ENCOUNTER → 2020-02-08 | Outpatient (CLI) | payer MEDICARE ==
--- NOTE | 2020-02-08 17:48 | US ---
EXAMINATION TYPE: US extremity nonvasc mass LT DATE OF EXAM: 02/08/2020 COMPARISON: NONE CLINICAL HISTORY: 79-year-old female R22.42 L LEG NODULE. Patient has a palpable lump left calf TECHNIQUE: Targeted ultrasound examination of the patient's left calf at the palpable site. FINDINGS: At the area of the patient's palpable lump, there is a normal, compressible superficial vein. No disc rete mass or fluid collection identified. IMPRESSION: Targeted scanning at the palpable site at the patient's left calf shows a normal, compressible superf icial vein. Otherwise, no discrete abnormality is seen. The palpable site can be followed clinically. If any enlarging abnormality is identified, the area could be rescanned.
== END | disposition home or self-care (01) ==
LOC: RADUSWWP 14:47
PROVIDERS: ATTEND Internal Medicine
DX: R22.42 Localized swelling, mass and lump, left lower limb (principal); Z88.8 Allergy status to other drugs, medicaments and biological substances

== ENCOUNTER → 2020-02-23 | Outpatient (CLI) | payer MEDICARE ==
[2020-02-23 10:31] LABS: Anisocytosis Moderate; Basophils % (A) 0 %; Eosinophils # (A) 0.2 k/uL (0-0.7); Eosinophils % (A) 5 %; HCT 31.6 % (34.0-46.0); HGB 9.4 gm/dL (11.4-16.0); Hypochromasia Marked; Lymphocytes # (A) 1.7 k/uL (1.0-4.8); Lymphocytes % (A) 43 %; MCH 29.8 pg (25.0-35.0); MCHC 29.6 g/dL (31.0-37.0); MCV 100.5 fL (80.0-100.0); Macrocytosis Moderate; Mean Platelet Volume 8.3; Monocytes # (A) 0.3 k/uL (0-1.0); Monocytes % (A) 8 %; Neutrophils # (A) 1.6 k/uL (1.3-7.7); Platelet Count 224 k/uL (150-450); Poikilocytosis Slight; RBC 3.14 m/uL (3.80-5.40); RDW 22.2 % (11.5-15.5)
[2020-02-23 10:33] LABS: Appearance,Urine Clear (Clear); Bacteria,Urine Rare /hpf; Bilirubin,Urine Negative (Negative); Blood,Urine Negative (Negative); Color,Urine Yellow; Glucose,Urine (UA) Negative (Negative); Hyaline Casts,Urine 5 /lpf (0-2); Ketones,Urine Negative (Negative); Leukocyte Esterase,Urine Small (Negative); Mucus,Urine Rare /hpf; Nitrite,Urine Negative (Negative); Protein,Urine Trace (Negative); RBC,Urine 2 /hpf (0-5); Specific Gravity,Urine 1.026 (1.001-1.035); Squamous Epithelial Cell,Urine 3 /hpf (0-4); Urobilinogen,Urine <2.0 mg/dL (<2.0); WBC,Urine 3 /hpf (0-5)
[2020-02-23 12:19] LABS: Tear Drop Cells Present
[2020-02-23 17:15] LABS: % Iron Saturation 51.6 (12.00-45.00); African American GFR (CKD) 44.6 (60.0-200.0); Albumin 4.5 g/dL (3.80-4.90); Anion Gap 9.6 mmol/L (4.00-12.00); BUN/Creat Ratio 21.54 Ratio (12.00-20.00); Calcium 9.6 mg/dL (8.7-10.3); Carbon Dioxide 26.4 mmol/L (21.6-31.8); Magnesium 1.9 mg/dL (1.5-2.4); Non-African American GFR(CKD) 38.4 (60.0-200.0); Phosphorus 3.3 mg/dL (2.4-5.1); Potassium 4.6 mmol/L (3.5-5.5); Uric Acid 6.6 mg/dL (2.9-7.7)
[2020-02-23 17:19] LABS: Hemoglobin A1C 6.2 % (4.0-6.0)
[2020-02-23 17:25] LABS: Ferritin 683.1 ng/mL (10.0-291.0)
[2020-02-23 19:20] LABS: Creatinine,Urine Random 137.9 mg/dL
[2020-02-23 20:05] LABS: Total Protein,Urine Random 26.1 mg/dL (0.0-13.5)
== END | disposition home or self-care (01) ==
LOC: LABWHC1 09:16
PROVIDERS: ATTEND Nurse Practitioner Family
DX: E21.3 Hyperparathyroidism, unspecified (principal); E55.9 Vitamin D deficiency, unspecified; E11.22 Type 2 diabetes mellitus with diabetic chronic kidney disease; D63.1 Anemia in chronic kidney disease; N18.30 Chronic kidney disease, stage 3 unspecified; N25.81 Secondary hyperparathyroidism of renal origin; N39.0 Urinary tract infection, site not specified; M10.9 Gout, unspecified; R80.9 Proteinuria, unspecified
CPT/HCPCS: 36415; 80048; 81001; 82040; 82306; 82570; 82728; 83036; 83540; 83550; 83735; 83970; 84100; 84156; 84550; 85025

== ENCOUNTER → 2020-03-30 | Outpatient (CLI) | payer MEDICARE ==
--- NOTE | 2020-03-30 11:19 | US ---
EXAMINATION TYPE: US kidneys/renal and bladder DATE OF EXAM: 03/30/2020 COMPARISON: US 12/24/2016 CLINICAL HISTORY: N18.3 CKD. EXAM MEASUREMENTS: Right Kidney: 9.0 x 4.5 x 4.0 cm Left Kidney: 9.9 x 5.1 x 4.6 cm Right Kidney: No hydronephrosis or masses seen. Left Kidney: No hydronephrosis or masses seen Bladder: Not distended There is no evidence for hydronephrosis at this point in time. No nephrolithiasis is seen. No danny s are identified on images saved. Some cortical thinning bilaterally. Bladder poorly distended and t hus suboptimally evaluated. IMPRESSION: No hydronephrosis noted bilaterally. No significant change from prior study.
== END | disposition home or self-care (01) ==
LOC: RADUSWWP 10:45
PROVIDERS: ATTEND Internal Medicine Nephrology
DX: N18.30 Chronic kidney disease, stage 3 unspecified (principal)
CPT/HCPCS: 76770

== ENCOUNTER → 2020-05-23 | Outpatient (CLI) | payer MEDICARE ==
[2020-05-23 15:43] LABS: Chol/HDL Ratio 2.88; LDL Cholesterol,Calculated 53.6 mg/dL (0.0-131.0); VLDL Calculation 25.4 mg/dL (5.00-40.00)
== END | disposition home or self-care (01) ==
LOC: LABWHC1 09:18
PROVIDERS: ATTEND Nurse Practitioner Adult Health
DX: E78.2 Mixed hyperlipidemia (principal)
CPT/HCPCS: 36415; 80061; 84450; 84460

== ENCOUNTER → 2020-08-16 | Outpatient (CLI) | payer MEDICARE ==
[2020-08-16 11:00] LABS: Creatinine,Urine Random 83.1 mg/dL; Protein/Creatinine Ratio,Urine 0.12
[2020-08-16 11:17] LABS: Appearance,Urine Clear (Clear); Bilirubin,Urine Negative (Negative); Blood,Urine Negative (Negative); Color,Urine Light Yellow; Glucose,Urine (UA) Negative (Negative); Ketones,Urine Negative (Negative); Leukocyte Esterase,Urine Small (Negative); Mucus,Urine Rare /hpf; Nitrite,Urine Negative (Negative); Protein,Urine Negative (Negative); RBC,Urine 1 /hpf (0-5); Specific Gravity,Urine 1.015 (1.001-1.035); Squamous Epithelial Cell,Urine <1 /hpf (0-4); Urobilinogen,Urine <2.0 mg/dL (<2.0); WBC,Urine 2 /hpf (0-5)
[2020-08-16 15:49] LABS: HGB 8.9 g/dL (12.0-15.0); MCH 30.2 pg (27.0-32.0); MCHC 29.7 g/dL (32.0-37.0); MCV 101.7 fL (80.0-97.0); Mean Platelet Volume 10.5 fL (9.5-12.2); Platelet Count 315 X 10*3/uL (140-440); RBC 2.95 X 10*6/uL (4.10-5.20); RDW 22.4 % (11.5-14.5); WBC 7.28 X 10*3/uL (4.50-10.00)
[2020-08-16 18:18] LABS: Basophils # (A) 0.04 X 10*3/uL (0.00-0.10); Basophils % (A) 0.5 %; Eosinophils # (A) 0.19 X 10*3/uL (0.04-0.35); Eosinophils % (A) 2.6 %; Lymphocytes # (A) 2.46 X 10*3/uL (0.90-5.00); Lymphocytes % (A) 33.8 %; Monocytes # (A) 0.85 X 10*3/uL (0.20-1.00); Monocytes % (A) 11.7 %; Neutrophils % (A) 49.5 %
[2020-08-16 18:19] LABS: Anisocytosis (M) 2+
[2020-08-16 18:21] LABS: Hemoglobin A1C 6.2 % (4.0-6.0)
[2020-08-17 00:20] LABS: African American GFR (CKD) 40.7 (60.0-200.0); Albumin 4.3 g/dL (3.80-4.90); Anion Gap 10.7 mmol/L (4.00-12.00); BUN/Creat Ratio 17.86 Ratio (12.00-20.00); Calcium 9.9 mg/dL (8.7-10.3); Carbon Dioxide 23.3 mmol/L (21.6-31.8); Non-African American GFR(CKD) 35.1 (60.0-200.0); Phosphorus 3.9 mg/dL (2.4-5.1); Uric Acid 6.3 mg/dL (2.9-7.7)
[2020-08-17 00:21] LABS: % Iron Saturation 18.38 (12.00-45.00); Magnesium 1.7 mg/dL (1.5-2.4)
[2020-08-17 01:57] LABS: Ferritin 538.3 ng/mL (10.0-291.0)
== END | disposition home or self-care (01) ==
LOC: LABWHC1 08:51
PROVIDERS: ATTEND Nurse Practitioner Family
DX: E11.22 Type 2 diabetes mellitus with diabetic chronic kidney disease (principal); N18.30 Chronic kidney disease, stage 3 unspecified; E21.3 Hyperparathyroidism, unspecified; N25.81 Secondary hyperparathyroidism of renal origin; D64.9 Anemia, unspecified; N39.0 Urinary tract infection, site not specified; M10.9 Gout, unspecified; R80.9 Proteinuria, unspecified
CPT/HCPCS: 36415; 80048; 81001; 82040; 82306; 82570; 82728; 83036; 83540; 83550; 83735; 83970; 84100; 84156; 84550; 85025

== ENCOUNTER → 2020-09-01 | Outpatient (CLI) | payer MEDICARE ==
--- NOTE | 2020-09-04 11:12 | MM ---
Reason for exam: screening (asymptomatic). Last mammogram was performed 1 year and 5 months ago. History: Patient is postmenopausal. Took estrogen for 10 years beginning at age 53. Took progesterone for 10 years beginning at age 53. Physical Findings: A clinical breast exam by your physician is recommended on an annual basis and results should be correlated with mammographic findings. MG 3D Screening Mammo W/Cad Bilateral CC and MLO view(s) were taken. Prior study comparison: March 31, 2019, bilateral MG 3d screening mammo w/cad. January 30, 2018, left breast MG 3d work up w/cad LT. There are scattered fibroglandular densities. ASSESSMENT: Negative, BI-RAD 1 RECOMMENDATION: Routine screening mammogram of both breasts in 1 year.
== END | disposition home or self-care (01) ==
LOC: RADMAMWWP 10:38
PROVIDERS: ATTEND Internal Medicine
DX: Z12.31 Encounter for screening mammogram for malignant neoplasm of breast (principal); Z78.0 Asymptomatic menopausal state; Z79.818 Long term (current) use of other agents affecting estrogen receptors and estrogen levels
CPT/HCPCS: 77063; 77067

== ENCOUNTER → 2020-12-01 | Outpatient (CLI) | payer MEDICARE ==
[2020-12-02 03:23] LABS: African American GFR (CKD) 40.7 (60.0-200.0); Albumin 4.6 g/dL (3.80-4.90); Albumin/Globulin Ratio 2.09 (1.60-3.17); Anion Gap 12.4 mmol/L (4.00-12.00); BUN/Creat Ratio 20.71 Ratio (12.00-20.00); Calcium 9.6 mg/dL (8.7-10.3); Carbon Dioxide 19.6 mmol/L (21.6-31.8); Chol/HDL Ratio 2.52; Globulin 2.2 g/dL (1.6-3.3); LDL Cholesterol,Calculated 39.6 mg/dL (0.0-131.0); Non-African American GFR(CKD) 35.1 (60.0-200.0); Potassium 4.8 mmol/L (3.5-5.5); Total Bilirubin 0.4 mg/dL (0.2-1.2); Total Protein 6.8 g/dL (6.2-8.2); VLDL Calculation 24.4 mg/dL (5.00-40.00)
== END | disposition home or self-care (01) ==
LOC: LABWHC1 08:51
PROVIDERS: ATTEND Nurse Practitioner Adult Health
DX: I12.9 Hypertensive chronic kidney disease with stage 1 through stage 4 chronic kidney disease, or unspecified chronic kidney disease (principal); N18.9 Chronic kidney disease, unspecified; E78.2 Mixed hyperlipidemia
CPT/HCPCS: 36415; 80053; 80061

== ENCOUNTER 2021-01-01 06:12 | Day surgery (SDC) | payer MEDICARE ==
[2020-12-27 16:14] VITALS: BMI 38.7
[~2021-01-01 06:12] MED LIST changes: +LIDOCAINE 1% (10MG/ML) FOR IV START INTRADERMA PRN
[2021-01-01 07:09] LABS: Glucose,Whole Blood 114 mg/dL (75-99)
[2021-01-01] MEDS ORDERED: LIDOCAINE 1% (10MG/ML) FOR IV START INTRADERMA ONE (07:12)
[2021-01-01] MEDS ORDERED: PROPOFOL 10 MG/ML 20 ML VIAL IV ONE (07:14)
[2021-01-01] MEDS ORDERED: fentaNYL (PF) 50 MCG/ML 2 ML AMP ONE (07:14)
[2021-01-01] MEDS ORDERED: MIDAZOLAM 2 MG/2 ML VIAL ONE (07:14)
[2021-01-01 07:15] VITALS: RESP 16; TEMP 97.2
[2021-01-01] MEDS ORDERED: IV FLUID CONTINUATION 1,000 ML IV ONE (07:42)
[2021-01-01 07:54] VITALS: BP 140/81; PULSE 81
--- NOTE | 2021-01-01 08:32 | PCN ---
PROCEDURE NOTE DATE OF SERVICE: January 01, 2021. PROCEDURE: Bone marrow aspirate and biopsy. INDICATION: Anemia, unresponsive to erythropoietin stimulating agents. DESCRIPTION OF PROCEDURE: After obtaining consent from the patient, the procedure was performed in the endoscopy suite under general anesthesia performed by the team. The patient was put in the left lateral decubitus position. The right posterior superior iliac crest was localized. Skin was cleansed with ChloraPrep. All sterile procedures were followed. 2% Xylocaine was used for local anesthetic. Monoject needle was inserted. About 15 mL of aspirate and 2 cm core biopsy was obtained without any difficulties. Pressure applied afterwards. The patient tolerated procedure very well without any immediate complications. MMODL / IJN: [id number] /
[2021-01-01 13:26] LABS: Anisocytosis Marked; Basophils % (A) 1 %; Eosinophils # (A) 0.2 k/uL (0-0.7); Eosinophils % (A) 2 %; HCT 30.5 % (34.0-46.0); HGB 9.2 gm/dL (11.4-16.0); Hypochromasia Moderate; Lymphocytes # (A) 1.8 k/uL (1.0-4.8); Lymphocytes % (A) 26 %; MCH 30.7 pg (25.0-35.0); MCV 102.2 fL (80.0-100.0); Macrocytosis Marked; Mean Platelet Volume 9.8; Monocytes # (A) 0.6 k/uL (0-1.0); Monocytes % (A) 8 %; Neutrophils # (A) 4.2 k/uL (1.3-7.7); Neutrophils % (A) 60 %; Platelet Count 280 k/uL (150-450); Poikilocytosis Slight; RBC 2.99 m/uL (3.80-5.40); Reticulocyte % 0.8 % (0.5-2.0)
[2021-01-01 14:22] LABS: Ovalocytes Present
[2021-01-01 14:23] LABS: Polychromasia Present
== END 2021-01-01 08:24 | disposition home or self-care (01) ==
LOC: OR 06:12
PROVIDERS: ATTEND Internal Medicine Hematology & Oncology
DX: D53.9 Nutritional anemia, unspecified (principal); I12.9 Hypertensive chronic kidney disease with stage 1 through stage 4 chronic kidney disease, or unspecified chronic kidney disease; E11.22 Type 2 diabetes mellitus with diabetic chronic kidney disease; N18.30 Chronic kidney disease, stage 3 unspecified; D63.1 Anemia in chronic kidney disease; D51.8 Other vitamin B12 deficiency anemias; D50.9 Iron deficiency anemia, unspecified; K21.9 Gastro-esophageal reflux disease without esophagitis; M19.90 Unspecified osteoarthritis, unspecified site; Z90.49 Acquired absence of other specified parts of digestive tract; Z86.718 Personal history of other venous thrombosis and embolism; Z96.652 Presence of left artificial knee joint; Z98.51 Tubal ligation status; Z98.890 Other specified postprocedural states; Z80.41 Family history of malignant neoplasm of ovary; Z80.0 Family history of malignant neoplasm of digestive organs; Z79.82 Long term (current) use of aspirin; Z79.899 Other long term (current) drug therapy; Z88.8 Allergy status to other drugs, medicaments and biological substances; Z97.2 Presence of dental prosthetic device (complete) (partial)
CPT/HCPCS: 85025; 85045; 38222; J2250; J3010; J2704

== ENCOUNTER 2021-03-17 12:12 | Emergency (ER) | payer MEDICARE ==
[2021-03-17] MEDS ORDERED: SODIUM CHLORIDE 0.9% 1,000 ML IV STA (13:02)
[2021-03-17] MEDS ORDERED: PANTOPRAZOLE 40 MG/10 ML VIAL IVP STA (13:03)
--- NOTE | 2021-03-17 13:06 | ED ---
General Adult HPI - General Chief complaint: Weakness Stated complaint: weakness,diarrhea Time Seen by Provider: 03/17/21 12:35 Source: patient, RN notes reviewed Mode of arrival: wheelchair Limitations: no limitations - History of Present Illness Initial comments: Patient is a pleasant 80-year-old female presenting to the emergency department with concern for dehydration. Patient has been having intermittent diarrhea over the past couple months. Patient is 3 episodes today. Patient is having diarrhea almost daily. Patient has had some decreased appetite. No vomiting. No abdominal pain. No fevers. Patient did have bone marrow biopsy done a couple months ago diagnosed with myelodysplasia. Patient states her hemoglobin regular has been running under 8. - Related Data Home Medications Medication Instructions Recorded Confirmed Aspirin 81 mg PO DAILY 06/03/14 03/17/21 Atorvastatin Calcium [Lipitor] 20 mg PO SUMOWETHFR 06/03/14 03/17/21 Cyanocobalamin [Vitamin B-12 1,000 mcg SQ QMONTH 08/15/17 03/17/21 Injection] Epoetin Herbert [Procrit] 40,000 unit INJ DIRECTED PRN 08/15/17 03/17/21 Ergocalciferol [Vitamin D2] 50,000 unit PO Q14D 08/15/17 03/17/21 Folic Acid 0.8 mg PO DAILY 08/15/17 03/17/21 allopurinoL [Zyloprim] 100 mg PO DAILY 08/15/17 03/17/21 calcitrioL [Rocaltrol] 0.25 mcg PO SUTUTHSA 08/15/17 03/17/21 Acetaminophen [Tylenol Arthritis] 650 mg PO QID PRN 03/17/21 03/17/21 Metoprolol Succinate (ER) [Toprol 100 mg PO DAILY 03/17/21 03/17/21 Xl] hydrALAZINE HCL [Apresoline] 50 mg PO TID@0900,1700,2100 03/17/21 03/17/21 lisinopriL [Zestril] 20 mg PO DAILY 03/17/21 03/17/21 Allergies Allergy/AdvReac Type Severity Reaction Status Date / Time Corticosteroids Allergy Rash/Hives Verified 01/01/21 06:47 (Glucocorticoids) dipyridamole AdvReac BRADYCARDIA, Verified 01/01/21 06:47 [From Persantine] HYPOTENSION DURING STRESS TEST Review of Systems ROS Statement: Those systems with pertinent positive or pertinent negative responses have been documented in the HPI. ROS Other: All systems not noted in ROS Statement are negative. Constitutional: Denies: fever Eyes: Denies: eye pain ENT: Denies: ear pain Respiratory: Denies: cough Cardiovascular: Denies: chest pain Endocrine: Reports: fatigue Gastrointestinal: Reports: as per HPI, diarrhea. Denies: abdominal pain Genitourinary: Denies: dysuria Musculoskeletal: Denies: back pain Skin: Denies: rash Neurological: Denies: confusion Past Medical History Past Medical History: Blood Disorder, Diabetes Mellitus, Deep Vein Thrombosis (DVT), Hyperlipidemia, Hypertension, Osteoarthritis (OA), Renal Disease Additional Past Medical History / Comment(s): KIDNEY FAILURE 2014, AFFECTED RBC'S, NO RX FOR DM SINCE. History of Any Multi-Drug Resistant Organisms: None Reported Past Surgical History: Cholecystectomy, Joint Replacement, Orthopedic Surgery, Tubal Ligation Additional Past Surgical History / Comment(s): left knee replacement. epidural pain injections. laser surgery lt leg for dvt Past Anesthesia/Blood Transfusion Reactions: Previous Problems w/ Anesthesia Additional Past Anesthesia/Blood Transfusion Reaction / Comment(s): WITH TOTAL KNEE WAS "OUT OF IT FOR ABOUT 5 DAYS.". blood transfusion without reaction after kidney failure Past Psychological History: No Psychological Hx Reported Smoking Status: Never smoker Past Alcohol Use History: None Reported Past Drug Use History: None Reported - Past Family History Daughter(s) Additional Family Medical History / Comment(s): Daughter--rectal cancer. Sister- ovarian cancer. Brother-lung cancer General Exam Limitations: no limitations General appearance: alert, in no apparent distress Head exam: Present: normocephalic Eye exam: Present: normal appearance Neck exam: Present: normal inspection Respiratory exam: Present: normal lung sounds bilaterally Cardiovascular Exam: Present: regular rate, normal rhythm GI/Abdominal exam: Present: soft. Absent: tenderness Extremities exam: Present: normal inspection Neurological exam: Present: alert, oriented X3, CN II-XII intact. Absent: motor sensory deficit Expanded Neurological exam: Present: protecting the airway Speech: Present: fluid speech Motor strength exam: RUE: 5, LUE: 5, RLE: 5, LLE: 5 Eye Response: (4) open spontaneously Motor Response: (6) obeys commands Verbal Response: (5) oriented Psychiatric exam: Present: normal affect, normal mood Skin exam: Present: normal color Course Vital Signs 03/17/21 12:22 Temperature 98.5 F Pulse Rate 81 Respiratory 18 Rate Blood Pressure 138/51 O2 Sat by Pulse 96 Oximetry Medical Decision Making - Medical Decision Making Patient reevaluated and resting comfortably in bed. Patient updated on results and need for follow-up as well as need for further studies. - Lab Data Result diagrams: 03/17/21 13:40 03/17/21 13:40 Lab Results 03/17/21 03/17/21 03/17/21 Range/Units 13:40 13:40 13:40 WBC 4.7 (3.8-10.6) k/uL RBC 2.53 L (3.80-5.40) m/uL Hgb 7.8 L (11.4-16.0) gm/dL Hct 27.2 L (34.0-46.0) % MCV 107.4 H (80.0-100.0) fL MCH 31.0 (25.0-35.0) pg MCHC 28.8 L (31.0-37.0) g/dL RDW 24.6 H (11.5-15.5) % Plt Count 239 (150-450) k/uL MPV 9.2 Neutrophils % (Manual) 51 % Band Neuts % (Manual) 3 % Lymphocytes % (Manual) 31 % Monocytes % (Manual) 12 % Eosinophils % (Manual) 2 % Metamyelocytes % 1 % Neutrophils # (Manual) 2.50 (1.3-7.7) k/uL Lymphocytes # (Manual) 1.46 (1.0-4.8) k/uL Monocytes # (Manual) 0.56 (0-1.0) k/uL Eosinophils # (Manual) 0.09 (0-0.7) k/uL Metamyelocytes # (Man) 0.05 H (0) k/uL Nucleated RBCs 1 H (0-0) /100 WBC Polychromasia Present Hypochromasia Marked Poikilocytosis Slight Anisocytosis Marked Macrocytosis Marked A Ovalocytes Present PT 10.5 (9.0-12.0) sec INR 1.0 (<1.2) APTT 20.8 L (22.0-30.0) sec Sodium 138 (137-145) mmol/L Potassium 4.1 (3.5-5.1) mmol/L Chloride 106 (98-107) mmol/L Carbon Dioxide 24 (22-30) mmol/L Anion Gap 8 mmol/L BUN 26 H (7-17) mg/dL Creatinine 1.47 H (0.52-1.04) mg/dL Est GFR (CKD-EPI)AfAm 38 (>60 ml/min/1.73 sqM) Est GFR (CKD-EPI)NonAf 33 (>60 ml/min/1.73 sqM) Glucose 115 H (74-99) mg/dL Calcium 8.9 (8.4-10.2) mg/dL Phosphorus 3.1 (2.5-4.5) mg/dL Magnesium 1.6 (1.6-2.3) mg/dL Total Bilirubin 0.4 (0.2-1.3) mg/dL AST 17 (14-36) U/L ALT 13 (4-34) U/L Alkaline Phosphatase 42 (38-126) U/L Total Protein 5.8 L (6.3-8.2) g/dL Albumin 3.7 (3.5-5.0) g/dL Disposition Clinical Impression: Dehydration Disposition: HOME SELF-CARE Condition: Stable Instructions (If sedation given, give patient instructions): Acute Diarrhea (ED), Dehydration (ED) Additional Instructions: Please do follow-up to primary care physician in the next couple days for recheck. You will likely need further investigation including stool studies. Return for increased diarrhea, concerns for dehydration, worsening symptoms or other concerns. Is patient prescribed a controlled substance at d/c from ED?: No Referrals: Sage Espinoza MD [Primary Care Provider] - 1-2 days Time of Disposition: 15:02
--- NOTE | 2021-03-17 13:48 | XR ---
EXAMINATION TYPE: XR chest 2V DATE OF EXAM: 03/17/2021 1:20 PM COMPARISON:Chest radiographs from 09/24/2019 CLINICAL INDICATION:Female, 80 years old with history of Weakness; TECHNIQUE: Frontal and lateral views of the chest. FINDINGS: Lungs/Pleura: Low lung volumes are present. There is no evidence of pleural effusion, focal consolida tion, or pneumothorax. Pulmonary vascularity: Unremarkable. Heart/mediastinum: Cardiomediastinal silhouette is unremarkable. Musculoskeletal: No acute osseous pathology. IMPRESSION: No acute cardiopulmonary disease/process.
[2021-03-17 14:01] LABS: Partial Thromboplastin Time 20.8 sec (22.0-30.0); Prothrombin Time 10.5 sec (9.0-12.0)
[2021-03-17 14:02] LABS: Anisocytosis Marked; HCT 27.2 % (34.0-46.0); HGB 7.8 gm/dL (11.4-16.0); Hypochromasia Marked; MCHC 28.8 g/dL (31.0-37.0); MCV 107.4 fL (80.0-100.0); Macrocytosis Marked; Mean Platelet Volume 9.2; Platelet Count 239 k/uL (150-450); Poikilocytosis Slight; RBC 2.53 m/uL (3.80-5.40); RDW 24.6 % (11.5-15.5); WBC 4.7 k/uL (3.8-10.6)
[2021-03-17 14:10] LABS: Albumin 3.7 g/dL (3.5-5.0); Calcium 8.9 mg/dL (8.4-10.2); Magnesium 1.6 mg/dL (1.6-2.3); Phosphorus 3.1 mg/dL (2.5-4.5); Potassium 4.1 mmol/L (3.5-5.1); Total Bilirubin 0.4 mg/dL (0.2-1.3); Total Protein 5.8 g/dL (6.3-8.2)
[2021-03-17 14:15] LABS: Band Neutrophils % 3 %; Eosinophils # (M) 0.09 k/uL (0-0.7); Lymphocytes # (M) 1.46 k/uL (1.0-4.8); Metamyelocytes # (M) 0.05 k/uL (0); Metamyelocytes % 1 %; Monocytes # (M) 0.56 k/uL (0-1.0); Neutrophils % (M) 51 %; Nucleated Red Blood Cells 1 /100 WBC (0-0); Ovalocytes Present; Polychromasia Present; Total Cells Counted 100
[2021-03-17 15:37] VITALS: RESP 16
[2021-03-17 15:38] VITALS: BP 137/78; PULSE 81; TEMP 98.2
== END 2021-03-17 15:25 | disposition home or self-care (01) ==
LOC: EC 12:12
DX: E86.0 Dehydration (principal); E11.9 Type 2 diabetes mellitus without complications; E78.5 Hyperlipidemia, unspecified; I10 Essential (primary) hypertension; M19.90 Unspecified osteoarthritis, unspecified site; Z79.82 Long term (current) use of aspirin; Z86.718 Personal history of other venous thrombosis and embolism; Z90.49 Acquired absence of other specified parts of digestive tract; Z98.51 Tubal ligation status; Z96.652 Presence of left artificial knee joint
CPT/HCPCS: 99284; 96374; 36415; 80053; 83735; 84100; 85025; 85610; 85730; 71046; C9113

== ENCOUNTER → 2021-03-26 | Outpatient (CLI) | payer MEDICARE ==
--- NOTE | 2021-03-26 14:47 | US ---
EXAMINATION TYPE: US kidneys/renal and bladder DATE OF EXAM: 03/26/2021 COMPARISON: US dated 03/30/2020 CLINICAL HISTORY: N18.3 Chronic kidney disease, stage 3 (moderate). EXAM MEASUREMENTS: Right Kidney: 9.4 x 4.2 x 4.3 cm Left Kidney: 10.2 x 4.9 x 5.4 cm Right Kidney: No hydronephrosis or masses seen Left Kidney: No hydronephrosis or masses seen Bladder: wnl There is no evidence for hydronephrosis at this point in time. No nephrolithiasis is seen. No danny s are identified. The urinary bladder is anechoic. Mild cortical thinning of the left kidney. IMPRESSION: No hydronephrosis or nephrolithiasis mild cortical thinning of the left correlate for chronic medical renal disease.
== END | disposition home or self-care (01) ==
LOC: RADUSWWP 14:11
PROVIDERS: ATTEND Internal Medicine Nephrology
DX: N18.30 Chronic kidney disease, stage 3 unspecified (principal)
CPT/HCPCS: 76770

== ENCOUNTER 2021-05-18 08:47 | Day surgery (SDC) | payer MEDICARE ==
[2021-05-17 11:12] VITALS: BMI 34.7
[2021-05-18] MEDS ORDERED: LACTATED RINGERS 1,000 ML IV SCH (09:01)
[2021-05-18 09:34] LABS: Glucose,Whole Blood 109 mg/dL (75-99)
[2021-05-18 09:35] VITALS: TEMP 97.4
[2021-05-18] MEDS ORDERED: PROPOFOL 10 MG/ML 20 ML VIAL IV ONE (09:35)
--- NOTE | 2021-05-18 09:45 | P.PCN ---
Date of Procedure: 05/18/21 Procedure(s) Performed: BRIEF HISTORY: Patient is a 80-year-old, pleasant, female scheduled for an upper endoscopy as a part of evaluation of epigastric pain and chronic diarrhea. She has history of GERD and has been on Pepcid 20 mg daily but denies any heartburn.. PROCEDURE PERFORMED: Esophagogastroduodenoscopy with biopsy. PREOPERATIVE DIAGNOSIS: Epigastric pain/chronic diarrhea/history of gerd IV sedation per anesthesia. PROCEDURE: After informed consent was obtained, the patient was brought into the endoscopy unit. IV sedation was administered by Anesthesia under continuous monitoring. Initially the Olympus GIF-140 video endoscope was inserted into the mouth. Esophagus intubated without any difficulty. It was gradually advanced into the stomach and duodenum and carefully examined. The bulb and the second part of the duodenum appeared normal. Th His were done from the duodenum to rul e out celiac disease. e scope at this time was withdrawn to the stomach, adequately insufflated with air, and upon careful examination, mucosa of the antrum, had patchy areas of erythema in a linear fashion extending into the body the stomach which was biopsied. Mucosa of the body, cardia and the fundus appeared normal. The scope was then withdrawn into the esophagus. The GE junction was located at 39 cm from the incisors. The esophagus appeared normal. There were no erosions or ulcerations seen and the patient tolerated the procedure well. IMPRESSION: 1. Mild antral gastritis. 2. Normal-appearing esophagus with no evidence of esophagitis or peptic ulcer disease. RECOMMENDATIONS: The findings of this examination were discussed with the patient well as her family. She was advised to follow with the biopsy results. She will continue with her current medications and follow antireflux measures .
[2021-05-18 10:33] VITALS: BP 170/67; PULSE 67; RESP 18
== END 2021-05-18 10:47 | disposition home or self-care (01) ==
LOC: ORWHC2ENDO 08:47
PROVIDERS: ATTEND Internal Medicine Gastroenterology
DX: K29.70 Gastritis, unspecified, without bleeding (principal); I10 Essential (primary) hypertension; E78.5 Hyperlipidemia, unspecified; E11.9 Type 2 diabetes mellitus without complications; N28.9 Disorder of kidney and ureter, unspecified
CPT/HCPCS: 43239; 88305; J2704

== ENCOUNTER → 2021-05-23 | Outpatient (CLI) | payer MEDICARE ==
[2021-05-23 15:02] LABS: ALT 8 U/L (8-44); AST 10 U/L (13-35); African American GFR (CKD) 54.2 (60.0-200.0); Albumin 4.1 g/dL (3.8-4.9); Albumin/Globulin Ratio 2.19 (1.60-3.17); Alkaline Phosphatase 42 U/L (41-126); BUN/Creat Ratio 15.27 Ratio (12.00-20.00); Blood Urea Nitrogen 16.8 mg/dL (9.0-27.0); Calcium 9.1 mg/dL (8.7-10.3); Carbon Dioxide 21.1 mmol/L (20.0-27.5); Chloride 106 mmol/L (96-109); Chol/HDL Ratio 2.13 Ratio; Globulin 1.9 g/dL (1.6-3.3); Glucose 98 mg/dL (70-110); LDL Cholesterol,Calculated 27.9 mg/dL (0.0-131.0); Non-African American GFR(CKD) 46.7 (60.0-200.0); Potassium 4.1 mmol/L (3.5-5.5); Sodium 140 mmol/L (135-145)
== END | disposition home or self-care (01) ==
LOC: LABWHC1 08:52
PROVIDERS: ATTEND Internal Medicine Interventional Cardiology
DX: E11.9 Type 2 diabetes mellitus without complications (principal); E78.2 Mixed hyperlipidemia; R63.4 Abnormal weight loss
CPT/HCPCS: 36415; 80053; 80061; 83036; 84439; 84443; 84481

== ENCOUNTER → 2021-08-15 | Outpatient (CLI) | payer MEDICARE ==
[2021-08-15 10:32] LABS: Creatinine,Urine Random 96.8 mg/dL; Protein/Creatinine Ratio,Urine 0.083
[2021-08-15 14:50] LABS: HCT 28.3 % (37.2-46.3); HGB 8.4 g/dL (12.0-15.0); MCH 29.9 pg (27.0-32.0); MCHC 29.7 g/dL (32.0-37.0); MCV 100.7 fL (80.0-97.0); Mean Platelet Volume 10.5 fL (9.5-12.2); NRBC Per 100 WBC 0.5 /100 WBCS (0.0-0.0); Platelet Count 258 X 10*3/uL (140-440); RBC 2.81 X 10*6/uL (4.10-5.20); WBC 4.44 X 10*3/uL (4.50-10.00)
[2021-08-15 14:53] LABS: % Iron Saturation 36.24 (12.00-45.00); African American GFR (CKD) 44.2 (60.0-200.0); BUN/Creat Ratio 14.23 Ratio (12.00-20.00); Blood Urea Nitrogen 18.5 mg/dL (9.0-27.0); Calcium 9.4 mg/dL (8.7-10.3); Magnesium 1.7 mg/dL (1.5-2.4); Non-African American GFR(CKD) 38.2 (60.0-200.0); Phosphorus 3.6 mg/dL (2.4-5.1); Uric Acid 6.6 mg/dL (2.9-7.7)
[2021-08-15 15:23] LABS: Albumin 4.2 g/dL (3.8-4.9)
[2021-08-15 15:24] LABS: Anisocytosis (M) 2+; Basophils # (M) 0.09 X 10*3/uL (0.00-0.10); Elliptocytes 2+; Eosinophils # (M) 0.18 X 10*3/uL (0.04-0.35); Hypochromasia (M) 2+; Lymphocytes # (M) 1.42 X 10*3/uL (0.90-5.00); Neutrophils # (M) 2.35 X 10*3/uL (2.00-8.90); Neutrophils % (M) 53 %
[2021-08-15 16:46] LABS: Appearance,Urine Clear (Clear); Bilirubin,Urine Negative (Negative); Blood,Urine Negative (Negative); Color,Urine Yellow (Yellow); Ketones,Urine Negative (Negative); Nitrite,Urine Negative (Negative); Specific Gravity,Urine 1.017 (1.001-1.030); Urobilinogen,Urine 0.2 (0.2,1.0)
[2021-08-15 16:53] LABS: Bacteria,Urine None Seen /HPF (None Seen)
== END | disposition home or self-care (01) ==
LOC: LABWHC1 09:08
PROVIDERS: ATTEND Internal Medicine
DX: N25.81 Secondary hyperparathyroidism of renal origin (principal); E55.9 Vitamin D deficiency, unspecified; N18.32 Chronic kidney disease, stage 3b; M10.9 Gout, unspecified; N39.0 Urinary tract infection, site not specified; D64.9 Anemia, unspecified
CPT/HCPCS: 36415; 80048; 81001; 82040; 82306; 82570; 82728; 83540; 83550; 83735; 83970; 84100; 84156; 84550; 85025

== ENCOUNTER → 2021-10-15 | Outpatient (CLI) | payer MEDICARE ==
--- NOTE | 2021-10-16 08:22 | MM ---
Reason for Exam: Screening (asymptomatic). Last mammogram was performed 1 year(s) and 2 month(s) ago. Patient History: Menarche at age 11. First Full-Term at age 19. Postmenopausal. Estrogen for 10 years from age 53 until age 64. Progesterone for 10 years from age 53 until age 64. Risk Values: Theodora 5 year model risk: 1.4%. NCI Lifetime model risk: 1.9%. Prior Study Comparison: 01/30/2018 Left Diagnostic Mammogram, [facility]. 03/31/2019 Bilateral Screening Mammogram, [facility]. 09/01/2020 Bilateral Screening Mammogram, [facility]. Tissue Density: The breast tissue is heterogeneously dense. This may lower the sensitivity of mammography. Findings: Analyzed By CAD. Benign calcifications are seen within the right breast. Right breast biopsy clip has been removed. There is no suspicious group of microcalcifications or new suspicious mass in either breast. Overall Assessment: Benign, BI-RAD 2 Management: Screening Mammogram of both breasts in 1 year. A clinical breast exam by your physician is recommended on an annual basis and results should be correlated with mammographic findings. Electronically signed and approved by: Toby Galaviz DO
== END | disposition home or self-care (01) ==
LOC: RADMAMWWP 13:02
PROVIDERS: ATTEND Internal Medicine
DX: Z12.31 Encounter for screening mammogram for malignant neoplasm of breast (principal); Z78.0 Asymptomatic menopausal state
CPT/HCPCS: 77063; 77067

== ENCOUNTER 2021-11-29 10:45 | Emergency (ER) | payer MEDICARE ==
[2021-11-29 11:58] VITALS: BP 159/64; PULSE 74; RESP 18; TEMP 98.6
--- NOTE | 2021-11-29 13:39 | ED ---
General Adult HPI - General Chief complaint: Upper Respiratory Infection Stated complaint: COVID test Time Seen by Provider: 11/29/21 13:15 Source: patient, RN notes reviewed, old records reviewed Mode of arrival: ambulatory Limitations: no limitations - History of Present Illness Initial comments: Patient is an 80-year-old female with past medical history remarkable for CK D, diabetes, hypertension who presents emergency Department complaining of Covid symptoms since Friday. He is endorsing him very mild headache, nasal drainage, nonproductive cough. Endorses fatigue. On Covid test was negative. Presents for further evaluation this time. Denies shortness breath, chest pain, abdominal pain, nausea and vomiting. States she did have 1 episode of diarrhea. Does have somewhat reduced appetite but is staying hydrated she states. Otherwise has no acute complaints at this time. Patient was vaccinated and boosted for COVID-19. No known sick contacts. No productive cough. No history of smoking. No history of asthma. Presents for Covid test. - Related Data Home Medications Medication Instructions Recorded Confirmed Aspirin 81 mg PO DAILY 06/03/14 05/17/21 Atorvastatin Calcium [Lipitor] 20 mg PO SUMOWETHFR 06/03/14 05/17/21 Cyanocobalamin [Vitamin B-12 1,000 mcg SQ QMONTH 08/15/17 05/17/21 Injection] Epoetin Herbert [Procrit] 40,000 unit INJ Q7D PRN 08/15/17 05/17/21 Ergocalciferol [Vitamin D2] 50,000 unit PO Q14D 08/15/17 05/17/21 Folic Acid 0.8 mg PO DAILY 08/15/17 05/17/21 allopurinoL [Zyloprim] 100 mg PO DAILY 08/15/17 05/17/21 calcitrioL [Rocaltrol] 0.25 mcg PO SUTUTHSA 08/15/17 05/17/21 Acetaminophen [Tylenol Arthritis] 650 mg PO QID PRN 03/17/21 05/17/21 Metoprolol Succinate (ER) [Toprol 100 mg PO QAM 03/17/21 05/17/21 Xl] hydrALAZINE HCL [Apresoline] 75 mg PO TID 03/17/21 05/17/21 Famotidine 40 mg PO BID 05/17/21 05/17/21 Lisinopril-Hctz 20-12.5 mg 1 tab PO BID 05/17/21 05/17/21 [Zestoretic 20-12.5] Allergies Allergy/AdvReac Type Severity Reaction Status Date / Time Corticosteroids Allergy Rash/Hives Verified 11/29/21 11:58 (Glucocorticoids) dipyridamole AdvReac BRADYCARDIA, Verified 11/29/21 11:58 [From Persantine] HYPOTENSION DURING STRESS TEST Review of Systems ROS Statement: Those systems with pertinent positive or pertinent negative responses have been documented in the HPI. Review of Systems: CONST: Denies fever EYES: Denies blurry vision ENT: Endorses nasal congestion C/V: Denies Chest pain RESP: Denies shortness of breath GI: Denies abdominal pain : Denies dysuria SKIN: Denies rash. MSK: Denies joint pain. NEURO: Endorses occasional mild tension-like headache. ROS Other: All systems not noted in ROS Statement are negative. Past Medical History Past Medical History: Blood Disorder, Diabetes Mellitus, Deep Vein Thrombosis (DVT), Hyperlipidemia, Hypertension, Osteoarthritis (OA), Renal Disease Additional Past Medical History / Comment(s): nausea and poor appetite w/ wt loss of approx 30 pounds,feels better with famotidine, hx KIDNEY FAILURE 2014, AFFECTED RBC'S, NO RX FOR DM SINCE,DVT September 2020 History of Any Multi-Drug Resistant Organisms: None Reported Past Surgical History: Cholecystectomy, Joint Replacement, Orthopedic Surgery, Tubal Ligation Additional Past Surgical History / Comment(s): left knee replacement. epidural pain injections. laser surgery lt leg for dvt Past Anesthesia/Blood Transfusion Reactions: Previous Problems w/ Anesthesia Additional Past Anesthesia/Blood Transfusion Reaction / Comment(s): WITH TOTAL KNEE WAS "OUT OF IT FOR ABOUT 5 DAYS in 2013.". blood transfusion without reaction after kidney failure Past Psychological History: No Psychological Hx Reported Smoking Status: Never smoker - Past Family History Daughter(s) Family Medical History: Cancer Additional Family Medical History / Comment(s): Daughter--rectal cancer. Sister(s) Family Medical History: Cancer Additional Family Medical History / Comment(s): ovarian Brother(s) Family Medical History: Cancer Additional Family Medical History / Comment(s): lung General Exam - General Exam Comments Initial Comments: General: Appears in no acute distress. HEAD: Normal with no signs of head trauma. EYES: EOMI. Conjunctiva normal. ENT: Hearing grossly intact, normal oropharynx. RESPIRATORY: Clear breath sounds bilaterally. No wheezes, rales, or rhonchi. No respiratory distress. No hypoxia. C/V: Regular rate and rhythm. S1 and S2 auscultated, no edema, peripheral pulses 2+ and intact throughout ABD: Abd is soft, nontender, nondistended EXT: Normal range of motion, no obvious deformity SKIN: No rashes or lesions observed on exposed skin. NEURO: Alert and oriented 4. Limitations: no limitations Course Vital Signs 11/29/21 11:54 Temperature 98.6 F Pulse Rate 74 Respiratory 18 Rate Blood Pressure 159/64 O2 Sat by Pulse 97 Oximetry Medical Decision Making - Medical Decision Making Based on the patient's presentation and physical exam, I am concerned for COVID- 19 infection. Covid swab was obtained on the patient remained in triage. It is positive. Vital signs are within normal limits. There is no respiratory distress. No hypoxia. She has no other acute complaints at this time. I did speak with the patient privately when she was brought back to a room. She does have a history of CK D with GFR ranging from 20-40. She just wanted to be evaluated for possible Covid as her testing was negative at home. I did update her that she is positive. However due to her kidney function I do not want to prescribe her Paxlovid. We currently do not have monoclonal antibodies. I explained that due to her normal vital signs, lack of respiratory distress, is overall well appearance I believe it is safer to be discharged home with close follow-up with her PCP. We discussed quarantine. We discussed obtaining a pulse oximeter. She was in agreement this plan. I instructed the patient to follow up with their PCP in the next 1-3 days. I explained that the patient should return to the emergency department if they experience any worsening symptoms. Strict return precautions were discussed with the patient. The patient expressed understanding of these instructions. I answered all questions that the patient had. The patient was discharged home in good condition with their prescriptions and follow up information. - Lab Data Lab Results 11/29/21 Range/Units 12:01 Coronavirus (PCR) Detected A (Not Detectd) Disposition Clinical Impression: COVID-19 virus infection, History of chronic kidney disease Disposition: HOME SELF-CARE Condition: Good Instructions (If sedation given, give patient instructions): Upper Respiratory Infection (ED), COVID-19 (Coronavirus Disease 2019) (ED) Additional Instructions: Obtain a pulse oximeter. Monitor oxygen levels at home, normal is greater than 9%%. return for persistent low levels of 90% or less. Remain quarentined until 2 days symptom free. Is patient prescribed a controlled substance at d/c from ED?: No Referrals: Sage Espinoza MD [Primary Care Provider] - 1-2 days Time of Disposition: 13:40
== END 2021-11-29 13:54 | disposition home or self-care (01) ==
LOC: EC 10:45
DX: U07.1 COVID-19 (principal); E11.9 Type 2 diabetes mellitus without complications; E78.5 Hyperlipidemia, unspecified; I10 Essential (primary) hypertension; M19.90 Unspecified osteoarthritis, unspecified site; I12.9 Hypertensive chronic kidney disease with stage 1 through stage 4 chronic kidney disease, or unspecified chronic kidney disease; N18.9 Chronic kidney disease, unspecified; Z88.8 Allergy status to other drugs, medicaments and biological substances; Z88.5 Allergy status to narcotic agent; Z79.82 Long term (current) use of aspirin; Z79.899 Other long term (current) drug therapy
CPT/HCPCS: 87635; 99284

== ENCOUNTER → 2021-12-19 | Outpatient (CLI) | payer MEDICARE ==
[2021-12-19 15:28] LABS: ALT 10 U/L (8-44); AST 15 U/L (13-35); African American GFR (CKD) 39.5 (60.0-200.0); Albumin 4.3 g/dL (3.8-4.9); Albumin/Globulin Ratio 2.01 (1.60-3.17); Alkaline Phosphatase 56 U/L (41-126); BUN/Creat Ratio 19.72 Ratio (12.00-20.00); Calcium 9.5 mg/dL (8.7-10.3); Carbon Dioxide 22.6 mmol/L (20.0-27.5); Chloride 108 mmol/L (96-109); Chol/HDL Ratio 2.18 Ratio; Globulin 2.1 g/dL (1.6-3.3); Glucose 101 mg/dL (70-110); LDL Cholesterol,Calculated 32.3 mg/dL (0.0-131.0); Non-African American GFR(CKD) 34.1 (60.0-200.0); Potassium 5.1 mmol/L (3.5-5.5); Sodium 141 mmol/L (135-145); Total Protein 6.4 g/dL (6.2-8.2)
== END | disposition home or self-care (01) ==
LOC: LABWHC1 09:08
PROVIDERS: ATTEND Internal Medicine Interventional Cardiology
DX: E78.2 Mixed hyperlipidemia (principal)
CPT/HCPCS: 36415; 80053; 80061

== ENCOUNTER → 2022-03-27 | Outpatient (CLI) | payer MEDICARE ==
[2022-03-27 11:37] LABS: Creatinine,Urine Random 95.9 mg/dL; Protein/Creatinine Ratio,Urine 0.083
[2022-03-27 14:53] LABS: HCT 30.3 % (37.2-46.3); MCH 30.4 pg (27.0-32.0); MCHC 29.7 g/dL (32.0-37.0); MCV 102.4 fL (80.0-97.0); Mean Platelet Volume 9.9 fL (9.5-12.2); NRBC Per 100 WBC 0.5 /100 WBCS (0.0-0.0); Platelet Count 256 X 10*3/uL (140-440); RBC 2.96 X 10*6/uL (4.10-5.20); WBC 4.37 X 10*3/uL (4.50-10.00)
[2022-03-27 15:36] LABS: Basophils # (A) 0.05 X 10*3/uL (0.00-0.10); Basophils % (A) 1.1 %; Eosinophils # (A) 0.16 X 10*3/uL (0.04-0.35); Eosinophils % (A) 3.7 %; Immature Grans, Automated 0.5 %; Lymphocytes # (A) 1.67 X 10*3/uL (0.90-5.00); Lymphocytes % (A) 38.2 %; Monocytes # (A) 0.63 X 10*3/uL (0.20-1.00); Monocytes % (A) 14.4 %; Neutrophils # (A) 1.84 X 10*3/uL (1.80-7.70); Neutrophils % (A) 42.1 %
[2022-03-27 15:37] LABS: Anisocytosis (M) 3+; Elliptocytes 2+
[2022-03-27 16:21] LABS: % Iron Saturation 28.46 (12.00-45.00); African American GFR (CKD) 42.4 (60.0-200.0); Anion Gap 11.5 mmol/L (10.00-18.00); BUN/Creat Ratio 18.36 Ratio (12.00-20.00); Blood Urea Nitrogen 24.6 mg/dL (9.0-27.0); Calcium 9.5 mg/dL (8.7-10.3); Carbon Dioxide 24.9 mmol/L (20.0-27.5); Magnesium 1.7 mg/dL (1.5-2.4); Non-African American GFR(CKD) 36.5 (60.0-200.0); Phosphorus 3.9 mg/dL (2.4-5.1); Potassium 3.9 mmol/L (3.5-5.5); Uric Acid 6.4 mg/dL (2.9-7.7)
[2022-03-27 16:24] LABS: Appearance,Urine Clear (Clear); Bilirubin,Urine Negative (Negative); Blood,Urine Negative (Negative); Color,Urine Yellow (Yellow); Ketones,Urine Negative (Negative); Nitrite,Urine Negative (Negative); Specific Gravity,Urine 1.018 (1.001-1.030); Urobilinogen,Urine 0.2 (0.2,1.0)
[2022-03-27 16:30] LABS: Bacteria,Urine None Seen /HPF (None Seen)
[2022-03-27 16:41] LABS: Albumin 4.3 g/dL (3.8-4.9)
== END | disposition home or self-care (01) ==
LOC: LABWHC1 08:59
PROVIDERS: ATTEND Nurse Practitioner Family
DX: N25.81 Secondary hyperparathyroidism of renal origin (principal); N18.32 Chronic kidney disease, stage 3b; D63.1 Anemia in chronic kidney disease; E55.9 Vitamin D deficiency, unspecified; M10.9 Gout, unspecified; N39.0 Urinary tract infection, site not specified; R80.9 Proteinuria, unspecified
CPT/HCPCS: 36415; 80048; 81001; 82040; 82306; 82570; 82728; 83540; 83550; 83735; 83970; 84100; 84156; 84550; 85025

== ENCOUNTER → 2022-04-12 | Outpatient (CLI) | payer MEDICARE ==
--- NOTE | 2022-04-12 15:30 | CT ---
EXAMINATION: CT CHEST, ABDOMEN AND PELVIS WITHOUT IV CONTRAST DATE OF EXAMINATION: 04/12/2022. COMPARISON: None available. INDICATION: Abnormal weight loss. PROCEDURE: Axial CT of the chest, abdomen and pelvis was performed without contrast. Coronal and sa gittal reformats were performed. CT dose lowering techniques were used, to include: automated exposur e control, adjustment for patient size, and/or use of iterative reconstruction. FINDINGS: CHEST: Mediastinum and [place]: There is no axillary, mediastinal or hilar lymphadenopathy. Pleural and Pericardial spaces: There is a small pericardial effusion. Cardiovascular: There is moderate vascular calcination throughout the thoracic aorta without evidence of aneurysmal dilation. There is severe diffuse coronary artery calcifications. Pulmonary Artery: The pulmonary arteries are normal in size Lung Parenchyma and Airways: The lungs are clear. ABDOMEN: Liver and Biliary system: Normal. Adrenal glands: Normal. Kidneys and ureters: Normal. Spleen: Normal. Pancreas: Normal. Gallbladder: Surgically absent. Lymph nodes, Peritoneum and mesentery: There is no mesenteric or retroperitoneal lymphadenopathy. Gastrointestinal tract: There are no dilated loops of bowel or free intraperitoneal air. . There is no evidence of appendicitis. There is mild to moderate sigmoid colonic diverticulosis without eviden ce of diverticulitis. Aorta/IVC: There is moderate vascular calcification throughout the abdominal aorta without evidence of aneurysmal dilation. IVC normal. Abdominal wall: Normal. PELVIS: Fluid: There is no free fluid in the pelvis. Lymph Nodes: There is no pelvic or inguinal lymphadenopathy.. Urinary bladder: Bladder is underdistended and not well evaluated. BONES: There is some scattered degenerative disc and facet changes seen throughout the spine with no aggressive osseous lesions. ADDITIONAL SIGNIFICANT FINDINGS: None. IMPRESSION: 1. No acute process seen within the chest, abdomen or pelvis and no findings to explain the patient's clinical symptoms. 2. Severe coronary artery calcifications. 3. Small pericardial effusion. 4. Diverticulosis without evidence of diverticulitis. .
== END | disposition home or self-care (01) ==
LOC: RADCTMAIN 13:50
PROVIDERS: ATTEND Internal Medicine Hematology & Oncology
DX: I25.10 Atherosclerotic heart disease of native coronary artery without angina pectoris (principal); D46.Z Other myelodysplastic syndromes; D63.1 Anemia in chronic kidney disease; D50.9 Iron deficiency anemia, unspecified; I31.39 Other pericardial effusion (noninflammatory); K57.30 Diverticulosis of large intestine without perforation or abscess without bleeding; R63.4 Abnormal weight loss
CPT/HCPCS: 71250; 74176

== ENCOUNTER → 2022-06-19 | Outpatient (CLI) | payer MEDICARE ==
[2022-06-19 16:34] LABS: ALT 12 U/L (8-44); AST 18 U/L (13-35); African American GFR (CKD) 48.4 (60.0-200.0); Albumin 4.4 g/dL (3.8-4.9); Albumin/Globulin Ratio 2.01 (1.60-3.17); Alkaline Phosphatase 52 U/L (41-126); BUN/Creat Ratio 18.33 Ratio (12.00-20.00); Calcium 9.3 mg/dL (8.7-10.3); Carbon Dioxide 26.3 mmol/L (20.0-27.5); Chloride 105 mmol/L (96-109); Chol/HDL Ratio 1.96 Ratio; Globulin 2.2 g/dL (1.6-3.3); Glucose 94 mg/dL (70-110); LDL Cholesterol,Calculated 41.2 mg/dL (0.0-131.0); Non-African American GFR(CKD) 41.8 (60.0-200.0); Sodium 143 mmol/L (135-145); Total Protein 6.6 g/dL (6.2-8.2); VLDL Calculation 13.34 mg/dL (5.00-40.00)
== END | disposition home or self-care (01) ==
LOC: LABWHC1 09:06
PROVIDERS: ATTEND Nurse Practitioner Adult Health
DX: N18.9 Chronic kidney disease, unspecified (principal); E78.2 Mixed hyperlipidemia
CPT/HCPCS: 36415; 80053; 80061

== ENCOUNTER → 2022-10-16 | Outpatient (CLI) | payer MEDICARE ==
[2022-10-16 10:06] LABS: Creatinine,Urine Random 155.7 mg/dL; Protein/Creatinine Ratio,Urine 0.051
[2022-10-16 12:27] LABS: % Iron Saturation 46.94 (12.00-45.00); Albumin 4.5 d/dL (3.8-4.9); BUN/Creat Ratio 19.21 Ratio (12.00-20.00); Blood Urea Nitrogen 26.9 mg/dL (9.0-27.0); Carbon Dioxide 26.3 mmol/L (21.6-31.8); Chloride 104 mmol/L (96-109); Glucose 100 mg/dL (70-110); Iron 115 UG/DL (50-170); Magnesium 1.9 mg/dL (1.5-2.4); Phosphorus 3.5 mg/dL (2.4-5.1); Sodium 141 mmol/L (135-145); Total Iron Binding Capacity 245 UG/DL (228-460); Uric Acid 6.1 mg/dL (2.9-7.7)
[2022-10-16 12:28] LABS: Basophils # (A) 0.04 X 10*3/uL (0.00-0.10); Basophils % (A) 0.8 %; Eosinophils # (A) 0.19 X 10*3/uL (0.04-0.35); Eosinophils % (A) 3.8 %; HCT 31.4 % (37.2-46.3); HGB 9.7 d/dL (12.0-15.0); Lymphocytes # (A) 1.77 X 10*3/uL (0.90-5.00); Lymphocytes % (A) 35.7 %; MCH 30.9 pg (27.0-32.0); MCHC 30.9 d/dL (32.0-37.0); Mean Platelet Volume 11.2 FL (9.5-12.2); Monocytes # (A) 0.65 X 10*3/uL (0.20-1.00); Monocytes % (A) 13.1 %; NRBC Per 100 WBC 0.02 X 10*3/uL (0.00-0.01); Neutrophils # (A) 2.26 X 10*3/uL (1.80-7.70); Neutrophils % (A) 45.6 %; Platelet Count 287 X 10*3/uL (140-440); RBC 3.14 X 10*6/uL (4.10-5.20); RDW 27.2 % (11.5-14.5); WBC 4.96 X 10*3/uL (4.50-10.00)
== END | disposition home or self-care (01) ==
LOC: LABWHC1 08:55
PROVIDERS: ATTEND Nurse Practitioner Family
DX: N18.32 Chronic kidney disease, stage 3b (principal); N25.81 Secondary hyperparathyroidism of renal origin
CPT/HCPCS: 36415; 80048; 82040; 82306; 82570; 82728; 83540; 83550; 83735; 83970; 84100; 84156; 84550; 85025

== ENCOUNTER → 2023-01-01 | Outpatient (CLI) | payer MEDICARE ==
[2023-01-01 17:37] LABS: Chol/HDL Ratio 1.92 Ratio; LDL Cholesterol,Calculated 29.8 mg/dL (0.0-131.0); VLDL Calculation 17.68 mg/dL (5.00-40.00)
[2023-01-01 17:38] LABS: ALT 12 U/L (8-44); AST 20 U/L (13-35); Albumin 4.2 d/dL (3.8-4.9); Albumin/Globulin Ratio 2.33 Ratio (1.60-3.17); Alkaline Phosphatase 50 U/L (41-126); BUN/Creat Ratio 16.77 Ratio (12.00-20.00); Blood Urea Nitrogen 21.8 mg/dL (9.0-27.0); Calcium 9.5 mg/dL (8.7-10.3); Chloride 107 mmol/L (96-109); Globulin 1.8 d/dL (1.6-3.3); Glucose 100 mg/dL (70-110); Potassium 5.3 mmol/L (3.5-5.5); Sodium 143 mmol/L (135-145); Total Bilirubin 0.5 mg/dL (0.3-1.2)
== END | disposition home or self-care (01) ==
LOC: LABWHC1 09:20
PROVIDERS: ATTEND Internal Medicine Interventional Cardiology
DX: I10 Essential (primary) hypertension (principal); E78.2 Mixed hyperlipidemia
CPT/HCPCS: 36415; 80053; 80061

== ENCOUNTER → 2023-03-18 | Outpatient (CLI) | payer MEDICARE ==
[2023-03-18 15:27] LABS: Basophils # (A) 0.07 X 10*3/uL (0.00-0.10); Basophils % (A) 1.2 %; Eosinophils # (A) 0.22 X 10*3/uL (0.04-0.35); Eosinophils % (A) 3.7 %; HCT 31.3 % (37.2-46.3); HGB 9.5 g/dL (12.0-15.0); Lymphocytes # (A) 2.01 X 10*3/uL (0.90-5.00); Lymphocytes % (A) 34.1 %; MCH 31.3 pg (27.0-32.0); MCHC 30.4 g/dL (32.0-37.0); Mean Platelet Volume 10.9 FL (9.5-12.2); Monocytes % (A) 10.2 %; NRBC Per 100 WBC 0.03 X 10*3/uL (0.00-0.01); Neutrophils # (A) 2.95 X 10*3/uL (1.80-7.70); Neutrophils % (A) 50.1 %; Platelet Count 285 X 10*3/uL (140-440); RBC 3.04 X 10*6/uL (4.10-5.20); RDW 27.3 % (11.5-14.5); WBC 5.89 X 10*3/uL (4.50-10.00)
[2023-03-18 15:56] LABS: Magnesium 1.7 mg/dL (1.5-2.4); Phosphorus 3.4 mg/dL (2.4-5.1); Uric Acid 5.9 mg/dL (2.9-7.7)
[2023-03-18 15:57] LABS: % Iron Saturation 34.62 (12.00-45.00); Albumin 4.2 g/dL (3.8-4.9); Appearance,Urine Cloudy (Clear); BUN/Creat Ratio 21.92 Ratio (12.00-20.00); Bilirubin,Urine Negative (Negative); Blood Urea Nitrogen 26.3 mg/dL (9.0-27.0); Blood,Urine Negative (Negative); Calcium 9.6 mg/dL (8.7-10.3); Chloride 109 mmol/L (96-109); Color,Urine Yellow (Yellow); Glucose 101 mg/dL (70-110); Iron 81 UG/DL (50-170); Ketones,Urine Trace (Negative); Nitrite,Urine Positive (Negative); Potassium 5.2 mmol/L (3.5-5.5); Sodium 143 mmol/L (135-145); Specific Gravity,Urine 1.025 (1.001-1.030); Total Iron Binding Capacity 234 UG/DL (228-460); Urobilinogen,Urine 0.2 E.U./DL
[2023-03-18 16:26] LABS: Bacteria,Urine 3+ (None Seen)
== END | disposition home or self-care (01) ==
LOC: LABWHC1 11:28
PROVIDERS: ATTEND Internal Medicine Nephrology
DX: N25.81 Secondary hyperparathyroidism of renal origin (principal); D63.1 Anemia in chronic kidney disease; N18.32 Chronic kidney disease, stage 3b; M10.9 Gout, unspecified; N39.0 Urinary tract infection, site not specified; R80.9 Proteinuria, unspecified
CPT/HCPCS: 36415; 80048; 81001; 82040; 82043; 82306; 82570; 82728; 83540; 83550; 83735; 83970; 84100; 84550; 85025

== ENCOUNTER → 2023-07-04 | Outpatient (CLI) | payer MEDICARE ==
[2023-07-04 16:40] LABS: ALT 11 U/L (8-44); AST 13 U/L (13-35); Albumin 4.5 g/dL (3.8-4.9); Albumin/Globulin Ratio 2.25 Ratio (1.60-3.17); Alkaline Phosphatase 61 U/L (41-126); BUN/Creat Ratio 22.36 Ratio (12.00-20.00); Blood Urea Nitrogen 24.6 mg/dL (9.0-27.0); Calcium 9.7 mg/dL (8.7-10.3); Carbon Dioxide 23.9 mmol/L (21.6-31.8); Chloride 109 mmol/L (96-109); Glucose 100 mg/dL (70-110); LDL Cholesterol,Calculated 42.2 mg/dL (0.0-131.0); Potassium 5.4 mmol/L (3.5-5.5); Sodium 144 mmol/L (135-145); Total Bilirubin 0.4 mg/dL (0.3-1.2); Total Protein 6.5 g/dL (6.2-8.2); VLDL Calculation 17.12 mg/dL (5.00-40.00)
== END | disposition home or self-care (01) ==
LOC: LABWHC1 09:07
PROVIDERS: ATTEND Internal Medicine Interventional Cardiology
DX: E78.2 Mixed hyperlipidemia (principal)
CPT/HCPCS: 36415; 80053; 80061

== ENCOUNTER → 2024-01-16 | Outpatient (CLI) | payer MEDICARE ==
[2024-01-17 02:24] LABS: Basophils # (A) 0.06 X 10*3/uL (0.00-0.10); Basophils % (A) 1.3 %; Eosinophils # (A) 0.29 X 10*3/uL (0.04-0.35); Eosinophils % (A) 6.1 %; HCT 28.8 % (37.2-46.3); HGB 8.6 g/dL (12.0-15.0); Lymphocytes # (A) 1.77 X 10*3/uL (0.90-5.00); Lymphocytes % (A) 37.1 %; MCH 30.5 pg (27.0-32.0); MCHC 29.9 g/dL (32.0-37.0); MCV 102.1 FL (80.0-97.0); Mean Platelet Volume 11.7 FL (9.5-12.2); Monocytes # (A) 0.66 X 10*3/uL (0.20-1.00); Monocytes % (A) 13.8 %; NRBC Per 100 WBC 0.03 X 10*3/uL (0.00-0.01); Neutrophils # (A) 1.93 X 10*3/uL (1.80-7.70); Neutrophils % (A) 40.4 %; Platelet Count 281 X 10*3/uL (140-440); RBC 2.82 X 10*6/uL (4.10-5.20); RDW 28.5 % (11.5-14.5); WBC 4.77 X 10*3/uL (4.50-10.00)
[2024-01-17 02:31] LABS: Appearance,Urine Clear (Clear); Bilirubin,Urine Negative (Negative); Blood,Urine Negative (Negative); Color,Urine Yellow (Yellow); Ketones,Urine Trace (Negative); Nitrite,Urine Negative (Negative)
[2024-01-17 02:36] LABS: Bacteria,Urine None Seen (None Seen)
[2024-01-17 03:13] LABS: % Iron Saturation 54.83 (12.00-45.00); Albumin 4.4 g/dL (3.8-4.9); BUN/Creat Ratio 21.17 Ratio (12.00-20.00); Blood Urea Nitrogen 25.4 mg/dL (9.0-27.0); Calcium 9.1 mg/dL (8.7-10.3); Carbon Dioxide 23.6 mmol/L (21.6-31.8); Chloride 109 mmol/L (96-109); Glucose 115 mg/dL (70-110); Iron 142 UG/DL (50-170); Magnesium 1.6 mg/dL (1.5-2.4); Phosphorus 3.2 mg/dL (2.4-5.1); Potassium 4.4 mmol/L (3.5-5.5); Sodium 142 mmol/L (135-145); Total Iron Binding Capacity 259 UG/DL (228-460); Uric Acid 7.4 mg/dL (2.9-7.7)
== END | disposition home or self-care (01) ==
LOC: LABWHC1 13:43
PROVIDERS: ATTEND Nurse Practitioner Family
DX: N18.32 Chronic kidney disease, stage 3b (principal); M10.9 Gout, unspecified; N39.0 Urinary tract infection, site not specified; D64.9 Anemia, unspecified; R80.9 Proteinuria, unspecified; E55.9 Vitamin D deficiency, unspecified; N25.81 Secondary hyperparathyroidism of renal origin
CPT/HCPCS: 36415; 80048; 81001; 82040; 82043; 82306; 82570; 82728; 83540; 83550; 83735; 83970; 84100; 84550; 85025

== ENCOUNTER → 2024-01-16 | Outpatient (CLI) | payer MEDICARE ==
--- NOTE | 2024-01-25 17:14 | MM ---
Reason for Exam: Screening (asymptomatic). Last mammogram was performed 1 year(s) and 2 month(s) ago. Patient History: Menarche at age 11. First Full-Term at age 19. Postmenopausal. Estrogen for 10 years from age 53 until age 64. Progesterone for 10 years from age 53 until age 64. Risk Values: Theodora 5 year model risk: 1.1%. NCI Lifetime model risk: 1.1%. Prior Study Comparison: 09/01/2020 Bilateral Screening Mammogram, [facility]. 10/15/2021 Bilateral MG 3D screening mammo w/cad, [facility]. 12/12/2022 Bilateral MG 3D screening mammo w/cad, [facility]. Tissue Density: The breasts are heterogeneously dense, which may obscure small masses. Findings: Analyzed By CAD. The pattern is symmetrical. Scattered benign round vascular calcifications are present bilaterally. No suspicious groups of microcalcifications, spiculated or lobular masses, architectural distortion or other secondary signs of malignancy are mammographically apparent. Overall Assessment: Benign, BI-RAD 2 Management: Screening Mammogram of both breasts in 1 year. A negative mammogram report should not preclude additional follow up of suspicious palpable abnormalities. Patient should continue monthly self breast exam. A clinical breast exam by your physician is recommended on an annual basis and results should be correlated with mammographic findings. Note on Theodora scores and lifetime risk: 1. A Theodora score greater than 3% is considered moderate risk. If this is the case, consider specialist referral to assess eligibility for a risk reducing agent. 2. If overall lifetime risk for the development of breast cancer is 20% or higher, the patient may qualify for future screening with alternating mammogram and breast MRI. [facility], , 01/25/2024 5:11 PM. Electronically signed and approved by: Harish Mcconnell D.O. Radiologis
== END | disposition home or self-care (01) ==
LOC: RADMAMWWP 13:15
PROVIDERS: ATTEND Family Medicine
DX: Z12.31 Encounter for screening mammogram for malignant neoplasm of breast (principal); R92.333 Mammographic heterogeneous density, bilateral breasts; Z78.0 Asymptomatic menopausal state
CPT/HCPCS: 77063; 77067

== ENCOUNTER 2024-02-25 11:25 | Emergency (ER) | payer MEDICARE ==
--- NOTE | 2024-02-25 12:04 | ED ---
Head Injury HPI - General Chief complaint: Head Injury Stated complaint: fall, head injury Time Seen by Provider: 02/25/24 12:02 Source: patient, RN notes reviewed Mode of arrival: wheelchair Limitations: no limitations - History of Present Illness Initial comments: 83-year-old female presenting to the ER for head injury 1 hour ago. States she was at [facility] when her right knee gave out while she was walking, and she hit her left forehead on the wall as she fell. Believes she also struck her left knee on the ground if she is having left knee pain. Denies loss of consciousness. Denies blood thinners, states she only takes baby aspirin daily. No other injuries. - Related Data Home Medications Medication Instructions Recorded Confirmed Aspirin 81 mg PO DAILY 06/03/14 05/17/21 Atorvastatin Calcium [Lipitor] 20 mg PO SUMOWETHFR 06/03/14 05/17/21 Cyanocobalamin [Vitamin B-12 1,000 mcg SQ QMONTH 08/15/17 05/17/21 Injection] Epoetin Herbert [Procrit] 40,000 unit INJ Q7D PRN 08/15/17 05/17/21 Ergocalciferol [Vitamin D2] 50,000 unit PO Q14D 08/15/17 05/17/21 Folic Acid 0.8 mg PO DAILY 08/15/17 05/17/21 allopurinoL [Zyloprim] 100 mg PO DAILY 08/15/17 05/17/21 calcitrioL [Rocaltrol] 0.25 mcg PO SUTUTHSA 08/15/17 05/17/21 Acetaminophen [Tylenol Arthritis] 650 mg PO QID PRN 03/17/21 05/17/21 Metoprolol Succinate (ER) [Toprol 100 mg PO QAM 03/17/21 05/17/21 Xl] hydrALAZINE HCL [Apresoline] 75 mg PO TID 03/17/21 05/17/21 Famotidine 40 mg PO BID 05/17/21 05/17/21 Lisinopril-Hctz 20-12.5 mg 1 tab PO BID 05/17/21 05/17/21 [Zestoretic 20-12.5] Allergies/Adverse reactions: Allergies Allergy/AdvReac Type Severity Reaction Status Date / Time Corticosteroids Allergy Rash/Hives Verified 02/25/24 11:31 (Glucocorticoids) dipyridamole AdvReac BRADYCARDIA, Verified 02/25/24 11:31 [From Persantine] HYPOTENSION DURING STRESS TEST Review of Systems ROS Statement: Those systems with pertinent positive or pertinent negative responses have been documented in the HPI. ROS Other: All systems not noted in ROS Statement are negative. Past Medical History Past Medical History: Blood Disorder, Diabetes Mellitus, Deep Vein Thrombosis (DVT), Hyperlipidemia, Hypertension, Osteoarthritis (OA), Renal Disease Additional Past Medical History / Comment(s): nausea and poor appetite w/ wt loss of approx 30 pounds,feels better with famotidine, hx KIDNEY FAILURE 2014, AFFECTED RBC'S, NO RX FOR DM SINCE,DVT September 2020 History of Any Multi-Drug Resistant Organisms: None Reported Past Surgical History: Cholecystectomy, Joint Replacement, Orthopedic Surgery, Tubal Ligation Additional Past Surgical History / Comment(s): left knee replacement. epidural pain injections. laser surgery lt leg for dvt Past Anesthesia/Blood Transfusion Reactions: Previous Problems w/ Anesthesia Additional Past Anesthesia/Blood Transfusion Reaction / Comment(s): WITH TOTAL KNEE WAS "OUT OF IT FOR ABOUT 5 DAYS in 2013.". blood transfusion without reaction after kidney failure Past Psychological History: No Psychological Hx Reported Smoking Status: Never smoker - Past Family History Daughter(s) Family Medical History: Cancer Additional Family Medical History / Comment(s): Daughter--rectal cancer. Sister(s) Family Medical History: Cancer Additional Family Medical History / Comment(s): ovarian Brother(s) Family Medical History: Cancer Additional Family Medical History / Comment(s): lung General Exam Limitations: no limitations General appearance: alert, in no apparent distress Head exam: Present: normocephalic, other (3 cm laceration present on left forehead with active bleeding) Eye exam: Present: PERRL, EOMI. Absent: normal appearance (Contusions present around left eye, no pain with EOMs), scleral icterus, conjunctival injection ENT exam: Present: normal exam, mucous membranes moist Neck exam: Present: other (C-collar placed) Left Upper Leg exam: Present: normal inspection, full ROM. Absent: tenderness, swelling Knee exam: Present: normal inspection, full ROM. Absent: tenderness, swelling Lower Leg exam: Present: normal inspection, full ROM. Absent: tenderness, swelling Ankle exam: Present: normal inspection, full ROM. Absent: tenderness, swelling Neurovascular tendon exam: Present: no vascular compromise. Absent: pulse deficit, abnormal cap refill, motor deficit, sensory deficit Neurological exam: Present: alert, oriented X3, CN II-XII intact Psychiatric exam: Present: normal affect, normal mood Skin exam: Present: warm, dry, intact, normal color. Absent: rash Course Vital Signs 02/25/24 02/25/24 02/25/24 11:32 13:01 13:39 Temperature 97.4 F L 98 F 98 F Pulse Rate 75 68 68 Respiratory 18 16 18 Rate Blood Pressure 198/71 196/67 198/69 O2 Sat by Pulse 97 96 96 Oximetry 02/25/24 02/25/24 14:20 15:16 Temperature 98 F Pulse Rate 70 75 Respiratory 18 18 Rate Blood Pressure 183/70 158/73 O2 Sat by Pulse 97 97 Oximetry Procedures - Laceration Laceration #1 Consent Obtained: verbal consent Indication: laceration Site: face Size (cm): 3 Description: linear Depth: simple, single layer Anesthetic Used: lidocaine 1%, without epi Anesthesia Technique: local infiltration Amount (mls): 3 Pre-repair: wound explored, irrigated extensively, deep structures intact Type of Sutures: nylon Size of Sutures: 5-0 Number of Sutures: 3 Technique: simple, interrupted Patient Tolerated Procedure: well, no complications Additional Comments: Neurovascularly intact status post procedure Medical Decision Making - Medical Decision Making Was pt. sent in by a medical professional or institution (Dr. PA, MINE PROMOTOR, urgent care, hospital, or custodial...) When possible be specific @ -No Did you speak to anyone other than the patient for history (EMS, parent, family, police, friend...)? What history was obtained from this source @ -No Did you review nursing and triage notes (agree or disagree)? Why? @ -I reviewed and agree with nursing and triage notes Were old charts reviewed (outside hosp., previous admission, EMS record, old EKG, old radiological studies, urgent care reports/EKG's, custodial records)? Report findings @ -No old charts were reviewed Differential Diagnosis (chest pain, altered mental status, abdominal pain women, abdominal pain men, vaginal bleeding, weakness, fever, dyspnea, syncope, headache, dizziness, GI bleed, back pain, seizure, CVA, palpatations, mental health, musculoskeletal)? @ -Differential Musculoskeletal Intracranial bleed, skull fracture, concussion muscular strain, contusion, ligament sprain, fracture, arthritis, septic arthritis, bursitis, cellulitis, muscle spasm, nerve compression, DVT, arterial occlusion, herpes zoster, electrolyte abnormality, tumor.... This is not meant to be in all inclusive list EKG interpreted by me (3pts min.). @ -None X-rays interpreted by me (1pt min.). @ -Bilateral knees reveal no acute process CT interpreted by me (1pt min.). @ -CT no acute intracranial process, acute left forehead soft tissue hematoma with laceration, nonspecific white matter changes, no evidence of C-spine fracture U/S interpreted by me (1pt. min.). @ -None done What testing was considered but not performed or refused? (CT, X-rays, U/S, labs)? Why? @ -None What meds were considered but not given or refused? Why? @ -None Did you discuss the management of the patient with other professionals (professionals i.e. , PA, MINE PROMOTOR, lab, RT, psych nurse, social insurance administrator, surgical services assistant, teacher, interface control officer, protective services case worker)? Give summary @ -No Was smoking cessation discussed for >3mins.? @ -No Was critical care preformed (if so, how long)? @ -No Were there social determinants of health that impacted care today? How? (Homelessness, low income, unemployed, alcoholism, drug addiction, transportation, low edu. Level, literacy, decrease access to med. care, shelter, rehab)? @ -No Was there de-escalation of care discussed even if they declined (Discuss DNR or withdrawal of care, Hospice)? DNR status @ -No What co-morbidities impacted this encounter? (DM, HTN, Smoking, COPD, CAD, Cancer, CVA, ARF, Chemo, Hep., AIDS, mental health diagnosis, sleep apnea, morbid obesity)? @ -None Was patient admitted / discharged? Hospital course, mention meds given and route, prescriptions, significant lab abnormalities, going to OR and other pertinent info. @ -Discharge. This is an 83-year-old female presenting for head injury status post mechanical fall prior to arrival. Denies blood thinners, states she only takes baby aspirin daily. Denies loss of consciousness. Also reports bilateral knee pain after the fall. Patient was hypertensive on initial examination, states her hydralazine was recently changed from 100 mg to 50mg. There is a 3 cm laceration present on left forehead. Tetanus was updated. Patient was given one-time dose of hydralazine for hypertension. CT brain and C-spine negative for acute process. X-ray bilateral knees negative for acute process. Results were discussed with patient. Blood pressure improved to 158/73. Wound was thoroughly irrigated and 3 sutures were placed with no complications. Appropriate return precautions and follow-up care discussed. Case was discussed with my ED attending Dr. Morales. Undiagnosed new problem with uncertain prognosis? @ -No Drug Therapy requiring intensive monitoring for toxicity (Heparin, Nitro, Insulin, Cardizem)? @ -No Were any procedures done? @ -Yes, 3 sutures placed with no complications Diagnosis/symptom? @ -Head injury, head laceration Acute, or Chronic, or Acute on Chronic? @ -Acute Uncomplicated (without systemic symptoms) or Complicated (systemic symptoms)? @ -Uncomplicated Side effects of treatment? @ -No Exacerbation, Progression, or Severe Exacerbation? @ -No Poses a threat to life or bodily function? How? (Chest pain, [place], [place], pneumonia, PE, COPD, DKA, ARF, appy, cholecystitis, CVA, Diverticulitis, Homicidal, Suicidal, threat to staff... and all critical care pts) @ -No Disposition Clinical Impression: Head injury, Laceration of head Disposition: HOME SELF-CARE Condition: Stable Instructions (If sedation given, give patient instructions): Head Laceration (ED) Additional Instructions: Follow-up in 5 to 7 days for suture removal. Keep wound dry for 24 hours, then you may gently wash with antibacterial soap and water. Please return to the Em ergency Department if symptoms worsen or any other concerns. Is patient prescribed a controlled substance at d/c from ED?: No Referrals: Amanda Abel MD [Primary Care Provider] - 1-2 days Time of Disposition: 15:20
--- NOTE | 2024-02-25 13:00 | CT ---
EXAMINATION TYPE: CT brain cspine wo con CT DLP: 1367 mGycm, Automated exposure control for dose reduction was used. DATE OF EXAM: 02/25/2024 12:39 PM COMPARISON: CT brain C-spine 01/23/2020. CLINICAL INDICATION:Female, 83 years old with history of pain; FALL, LEFT EYE LACERATION TECHNIQUE: Brain: Multiple axial CT images of the brain were obtained without IV contrast. Cspine: Axial CT images from the skull base to the inferior aspect of T2 we obtained without intraven ous contrast. Coronal and sagittal reformatted images were also reviewed. FINDINGS: Brain: Extra-axial spaces: No abnormal extra-axial fluid collections. Ventricular system: Within normal limits Cerebral parenchyma: No acute intraparenchymal hemorrhage or mass effect. The valiente-white junction is well differentiated. Scattered hypoattenuating areas are seen within the periventricular white matte r. Cerebellum: Unremarkable. Mass effect: No evidence of midline shift. Intracranial vasculature: Atherosclerotic calcifications of the intracranial vessels. Soft tissues: Left forehead soft tissue hematoma with laceration. The hematoma measures up to 6 mm in thickness. Calvarium/osseous structures: No depressed skull fracture. Paranasal sinuses and mastoid air cells: Clear. Visualized orbits: Bilateral aphakia Cervical spine: Fracture: None. Osseous structures: Multilevel degenerative disc disease changes with endplate spurring and disc oste ophyte complex's. Vertebral alignment: Degenerative grade I anterolisthesis of C4 on C5 redemonstrated. Spinal canal/Neural Foramina: Disc osteophyte complexes at C4-C5, C5-C6, and C6-C7 with at least mild spinal canal stenosis. Facet joint uncovertebral joint arthropathy scattered throughout the cervical spine with varying degrees of neural foraminal stenosis. Fusion of the right C3-C4 facet joint. Neck soft tissues: Prevertebral soft tissues are within normal limits. Other: The airway is patent. The lung apices are clear. Bilateral palatine tonsilliths. Bilateral car otid bulb calcifications. IMPRESSION: 1. No acute intracranial process. 2. Acute left forehead soft tissue hematoma with laceration. 3. Nonspecific white matter changes, likely secondary to chronic small vessel ischemic disease. 4. No evidence of cervical spine fracture. 5. Mild to moderate multilevel degenerative disc disease. 6. Similar degenerative grade 1 anterolisthesis C4 on C5. [facility], , 02/25/2024 12:58 PM
[2024-02-25 13:02] VITALS: TEMP 98
--- NOTE | 2024-02-25 13:33 | XR ---
EXAMINATION TYPE: XR knee complete bilateral DATE OF EXAM: 02/25/2024 12:45 PM COMPARISON: None CLINICAL INDICATION: Female, 83 years old with history of left knee injury; , pain TECHNIQUE: XR knee complete bilateral 3 views submitted of the bilateral knees FINDINGS: Status post total knee arthroplasty changes with hardware in appropriate alignment and in tact. No evidence of fracture. IMPRESSION: Left: Status post total knee arthroplasty changes with hardware intact and appropriate alignment. No fractu res identified. Postsurgical calcifications along quadriceps insertion and subcutaneous tissues a nteriorly. A fabella is present. Atherosclerosis of the arterial vasculature. Right: Status post total knee arthroplasty changes with hardware intact and appropriate alignment. No fractures identified. Tricompartmental osteophyte formation involving the femoral condyles, tibi al plateau and patella. Mild joint space narrowing. Atherosclerosis of the arterial vasculature. IMPRESSION: 1. No acute osseous pathology. 2. Post left knee arthroplasty changes hardware appears intact. 3. Right moderate to severe degeneration changes of the knee.. [facility], , 02/25/2024 1:31 PM
[2024-02-25 13:40] VITALS: RESP 18
[2024-02-25] MEDS: hydrALAZINE HCL 50 MG TAB PO STA (13:45)
[2024-02-25] MEDS: LIDOCAINE 1% INJ 10MG/ML (20 ML MDV) SQ ONE (14:33)
[2024-02-25 15:17] VITALS: BP 158/73; PULSE 75
[2024-02-25] MEDS: DIPH,PERTUS(ACELL)TETVAC-LF 0.5 ML VIAL IM ONE (15:26)
== END 2024-02-25 15:34 | disposition home or self-care (01) ==
LOC: EC 11:25
DX: S01.91XA Laceration without foreign body of unspecified part of head, initial encounter (principal); Z88.8 Allergy status to other drugs, medicaments and biological substances; Z23 Encounter for immunization; W22.01XA Walked into wall, initial encounter; Y93.01 Activity, walking, marching and hiking
CPT/HCPCS: 73562; 72125; 70450; 90715; 99284; 90471; 12013; J2003